=== PATIENT | female | born 1955 | race Caucasian/White ===

== ENCOUNTER 2016-09-30 19:29 | Inpatient (IN) | payer MEDICARE, MEDICAID ==
--- NOTE | 2016-09-30 19:59 | ED Physician Chart ---
Chief Complaint/HPI - Patient Information Date Seen:: 09/30/16 Time Seen:: 19:45 Chief Complaint:: increasing confusion and failure to thrive History of Present Illness:: Patient is a resident of [facility] facility with multiple medical problems. She is sent here for failure to thrive and increasing confusion. Historian:: Patient Review:: Nurse's Note Reviewed, Transfer documents Reviewed Review of Systems - Review of Systems General/Constitutional: Weakness Skin: No skin lesions Head: No headache Eyes: No loss of vision ENT: No earache, No sore throat Neck: No neck pain, No swelling Cardio Vascular: No chest pain, No palpitations Pulmonary: No SOB, No cough GI: No nausea, No vomiting G/U: No dysuria, No frequency Musculoskeletal: No bone or joint pain Endocrine: No polyuria, No polydipsia Psychiatric: Prior psych history Allergic/Immuno: No urticaria Neurological: No syncope, No focal symptoms Past Medical History - Past Medical History Past Medical History: HTN, Dyslipidemia, Seizures, Dementia Family History: Other (not available) Social History: Non Smoker, No Alcohol, Care Facility Surgical History: None Psychiatricy History: Depression, Schizophrenia, Bipolar Medication: Reviewed Family Medical History - Family Member Mother History Unknown: Yes Physical Exam - Physical Examination General/Constitutional: Well-developed, well-nourished, Alert Other Gen/Cons comments:: Patient is confused; she states the year is 1970 Head: Atraumatic Eyes: Lids, conjuctiva normal, PERRL Skin: Nl inspection, No rash ENMT: External ears, nose nl, Oropharynx nl Other ENMT comments:: Patient is edentulous Neck: No nuchal rigidity Respiratory: Nl effort/Exclusion, Clear to Auscultation Cardio Vascular: RRR GI: No tenderness/rebounding/guarding : No CVA tenderness Extremities: No tenderness or effusion, Normal digits & nails Neuro/Psych: No focal deficits Misc: No paraspinal tenderness Labs/Radiology/EKG Results - Lab Results Results: Laboratory Results - last 24 hr 09/30/16 09/30/16 09/30/16 20:02 20:02 20:02 WBC 7.9 RBC 4.14 Hgb 13.0 Hct 38.8 MCV 93.7 MCH 31.4 H MCHC Differential 33.5 RDW 12.7 Plt Count 256 MPV 8.0 Neutrophils % 47.9 Lymphocytes % 43.5 Monocytes % 5.8 Eosinophils % 1.9 Basophils % 0.9 Sodium 129 L Potassium 3.3 L Chloride 96 L Carbon Dioxide 24.9 Anion Gap 11.4 BUN 15 Creatinine 1.3 H Est GFR ( Amer) 53.6 Est GFR (Non-Af Amer) 44.3 BUN/Creatinine Ratio 11.5 Glucose 107 H Calcium 11.1 H Magnesium 2.2 - EKG Interpretations Rate & Rhythm: normal sinus rhythm with a rate of 70 Motley: normal axis Comments:: Baseline artifact noted ED Septic Shock - . Is Septic Shock (SBP<90, OR Lactate>4 mmol\L) present?: No Reassessment (Disposition) - Diagnosis Diagnosis:: Schizophrenia; bipolar; dementia; hypokalemia; hyponatremia - Patient Disposition Admitted to:: Med/Surg Spoke to:: Everett Pinto Admitting Medical Physician:: Everett Pinto Condition at Disposition:: Stable, Unchanged
[2016-09-30 20:10] LABS: % BASOPHILS 0.9 % (0.0-2.0); % EOSINOPHILS 1.9 % (0.0-5.0); % LYMPHOCYTES 43.5 % (20.0-50.0); % MONOCYTES 5.8 % (2.0-10.0); % NEUTROPHILS 47.9 % (40.0-80.0); HEMATOCRIT 38.8 % (35.0-45.0); MEAN CELL VOLUME 93.7 fl (81-100); MEAN CORPUSCULAR HEMOGLOBIN 31.4 pg (27.0-31.0); MEAN CORPUSCULAR HGB CONC 33.5 pg (28.0-36.0); NEUTROPHILE ABSOLUTE 3.7 Th/cmm (1.8-8.0); PLATELET COUNT 256 Th/cmm (150-400); RED BLOOD COUNT 4.14 Mil/cmm (3.80-5.10); RED CELL DISTRIBUTION WIDTH 12.7 % (11.5-20.0); WHITE BLOOD COUNT 7.9 Th/cmm (4.8-10.8)
[2016-09-30 20:24] LABS: ANION GAP 11.4 (7.0-16.0); BUN/CREATININE RATIO 11.5; CALCIUM SERUM 11.1 mg/dL (8.6-10.3); CARBON DIOXIDE 24.9 mEq/L (21.0-31.0); CREATININE - SERUM 1.3 mg/dL (0.6-1.2); POTASSIUM SERUM 3.3 mEq/L (3.5-5.1)
[2016-09-30] MEDS ORDERED: Potassium Chloride 20 mEq ER Tab PO ONE ×2 (20:50→20:52)
[2016-09-30] MEDS ORDERED: Hydrocodone/APAP 5mg/325mg Tab PO PRN (21:12)
[2016-09-30] MEDS ORDERED: Acetaminophen 500 MG TAB PO PRN (21:12)
[2016-09-30] MEDS: Sodium Chloride 0.9% 1,000 ML IV SCH (22:06)
[2016-09-30] MEDS: Atorvastatin Calcium 10 MG TAB PO SCH (23:16)
[2016-09-30 23:35] LABS: URINE BILIRUBIN NEGATIVE (NEGATIVE); URINE BLOOD NEGATIVE (NEGATIVE); URINE GLUCOSE (UA) NEGATIVE (NEGATIVE); URINE KETONE NEGATIVE (NEGATIVE); URINE PROTEIN TRACE mg/dL (NEGATIVE); URINE UROBILINOGEN 0.2 E.U./dL (0.2 - 1.0)
[2016-09-30 23:40] LABS: URINE COLOR YELLOW
[2016-09-30 23:41] LABS: URINE BACTERIA MANY /hpf (NONE SEEN); URINE EPITHELIAL CELLS MODERATE /lpf (FEW); URINE RBC 0-2 /hpf (0-5)
[2016-10-01 06:55] LABS: % LYMPHOCYTES 35.3 % (20.0-50.0); % MONOCYTES 6.2 % (2.0-10.0); % NEUTROPHILS 55.5 % (40.0-80.0); HEMOGLOBIN 11.8 gm/dL (11.7-15.5); MEAN CELL VOLUME 94.2 fl (81-100); MEAN CORPUSCULAR HEMOGLOBIN 32.2 pg (27.0-31.0); MEAN CORPUSCULAR HGB CONC 34.2 pg (28.0-36.0); MEAN PLATELET VOLUME 9.4 fl; NEUTROPHILE ABSOLUTE 4.7 Th/cmm (1.8-8.0); PLATELET COUNT 211 Th/cmm (150-400); RED BLOOD COUNT 3.67 Mil/cmm (3.80-5.10); RED CELL DISTRIBUTION WIDTH 12.6 % (11.5-20.0); WHITE BLOOD COUNT 8.5 Th/cmm (4.8-10.8)
[2016-10-01 06:56] LABS: HEMATOCRIT 34.5 % (35.0-45.0)
[2016-10-01] MEDS ORDERED: Levothyroxine 0.05 Mg Tab PO SCH (07:30)
[2016-10-01 07:39] LABS: ALB/GLOB RATIO 1.6 (1.0-1.8); ANION GAP 14.3 (7.0-16.0); BILIRUBIN,TOTAL 1.3 mg/dL (0.3-1.0); BUN/CREATININE RATIO 12.3; CALCIUM SERUM 9.8 mg/dL (8.6-10.3); CARBON DIOXIDE 17.3 mEq/L (21.0-31.0); CREATININE - SERUM 1.3 mg/dL (0.6-1.2); POTASSIUM SERUM 3.6 mEq/L (3.5-5.1)
[2016-10-01] MEDS: Sodium Chloride 0.9% 1,000 ML IV SCH (07:45)
[2016-10-01] MEDS: Benztropine 1 MG TAB PO SCH ×2 (08:46→16:13)
[2016-10-01] MEDS ORDERED: Multivitamin w/ Minerals Tab PO SCH (09:00)
--- NOTE | 2016-10-01 09:20 | Diagnostic Imaging Report ---
CHEST X-RAY: AP view INDICATION: Chest pain COMPARISON: None FINDINGS: Chronic changes are seen with suboptimal lung bones. There is no focal consolidation or pleural effusions The heart is normal in size. Degenerative changes of the spine and left shoulder are noted. IMPRESSION: No focal consolidation identified.
[2016-10-01] MEDS ORDERED: Sodium Chloride 0.9% 1,000 ML IV SCH (10:37)
--- NOTE | 2016-10-01 14:20 | Consultation ---
DATE OF CONSULTATION: 10/01/2016 REQUESTING PHYSICIAN: Laura Pinto M.D. REASON FOR CONSULTATION: Nausea and vomiting. HISTORY OF PRESENT ILLNESS: A 61-year-old female living in group home, presenting with nausea and vomiting. She reports choking on food there. Here, she is on a soft diet, but having no episodes of nausea, vomiting or choking. She denies abdominal pain, diarrhea, or constipation. She is a fair historian. PAST MEDICAL HISTORY: As above, also notable for schizoaffective disorder, hypertension, dyslipidemia and seizure disorder. Also, possible dementia and bipolar disorder. SOCIAL HISTORY: [facility] resident. No known tobacco, alcohol or drugs. FAMILY HISTORY: Noncontributory. REVIEW OF SYSTEMS: A comprehensive 12-point review of system was conducted and is only positive for those signs and symptoms present in the history of present illness. MEDICATIONS: Here are Tylenol, Meno, Tenormin, Lipitor, Cogentin, Tums, Colace, Aricept, Lamictal, Keppra, Synthroid, Namenda, Zofran, vitamin B6, IV fluids and Flomax. ALLERGIES: No known drug allergies. PHYSICAL EXAMINATION: VITAL SIGNS: Temperature of 97.7, blood pressure 108/61, pulse of 74, respirations 16, O2 sat is 94%. GENERAL: The patient is well-developed elderly female in no acute distress. CARDIOVASCULAR: Regular rate and rhythm. HEENT: Sclerae nonicteric. Oropharynx is clear. CARDIOVASCULAR: Regular rate and rhythm. ABDOMEN: Soft, nontender, nondistended. EXTREMITIES: No clubbing, cyanosis or edema. RECTAL: Deferred. LABORATORY DATA AND IMAGING: Complete blood count is normal. Sodium initially was 129, now up to 137, creatinine is 1.3. Blood sugar is normal. Bilirubin is 1.3. Other liver enzymes are normal. Albumin is normal at 4.2. Urinalysis positive nitrite, trace leukocyte esterase and 6-10 wbc's. IMPRESSION: 1. Nausea and vomiting, could be from gastroesophageal reflux disease or gastritis, could also be from urinary tract infection versus constipation versus less likely pancreatitis. 2. Schizoaffective disorder with bipolar disorder. 3. History of hypertension and hyperlipidemia. RECOMMENDATIONS: 1. Check abdominal ultrasound. 2. Check KUB. 3. Check amylase and lipase. 4. Oral diet as tolerated. If nausea and vomiting persist, then consider upper endoscopy later on. If the patient continues to do well, then nonendoscopic management is recommended. [facility]# [id number]
[2016-10-01] MEDS ORDERED: Sodium Chloride 0.9% 500 ML IV ONE (15:46)
--- NOTE | 2016-10-01 16:19 | Consultation ---
Consult Note - Consult Note Service Date: 10/01/16 Referring Physician: Everett Pinto Consult Note: PHYSICIAN Consultation Note: Date of Admission: 09/30/16 Purpose of Consultation: Chief Complaint: Patient AUDRA NERI was admitted to location Medical/Surgical Unit I with HYPONATREMIA,INCREASED OF CONFUSION & FAILURE TO THRIVE. History of Present Illness: .61 y female was brought from [facility] for Altered mental status. basic w/u performed and urinalysis showed mild pyuria and bacteruiuria. Past Medical History: Allergies Allergy/AdvReac Type Severity Reaction Status Date / Time No Known Allergies Allergy Verified 09/30/16 19:53 Vital Signs Temp 97.8 F 10/01/16 15:20 Pulse 74 10/01/16 15:20 Resp 17 10/01/16 15:20 BP 87/58 10/01/16 15:20 Pulse Ox 95 10/01/16 15:20 Intake & Output 09/30/16 10/01/16 10/01/16 18:59 06:59 18:59 Intake Total 1010 10 Balance 1010 10 Weight (lbs) 54.159 kg 54.159 kg Intake: Intake, IV Amount 1000 Sodium Chloride 0.9% 1, 1000 000 ml @ 125 mls/hr IV . Q8H SUKHDEEP Rx#:[id number] Oral 10 10 Other: # Voids 3 3 # Bowel Movements 0 0 Laboratory Results - last 24 hr 09/30/16 10/01/16 10/01/16 23:25 06:09 06:09 WBC 8.5 RBC 3.67 L Hgb 11.8 Hct 34.5 L D MCV 94.2 MCH 32.2 H MCHC Differential 34.2 RDW 12.6 Plt Count 211 MPV 9.4 Neutrophils % 55.5 Lymphocytes % 35.3 Monocytes % 6.2 Eosinophils % 2.0 Basophils % 1.0 Sodium 137 Potassium 3.6 Chloride 109 H Carbon Dioxide 17.3 L Anion Gap 14.3 BUN 16 Creatinine 1.3 H Est GFR ( Amer) 53.6 Est GFR (Non-Af Amer) 44.3 BUN/Creatinine Ratio 12.3 Glucose 100 Calcium 9.8 Total Bilirubin 1.3 H AST 20 ALT 11 Alkaline Phosphatase 94 Total Protein 6.8 Albumin 4.2 Globulin 2.6 Albumin/Globulin Ratio 1.6 Triglycerides 235 H Cholesterol 141 LDL Cholesterol Direct 63 L HDL Cholesterol 43 TSH Urine Source RANDOM Urine Color YELLOW Urine Clarity CLOUDY H Urine pH 6.0 Ur Specific Lyn[place] 1.020 Urine Protein TRACE Urine Glucose (UA) NEGATIVE Urine Ketones NEGATIVE Urine Blood NEGATIVE Urine Nitrate POSITIVE H Urine Bilirubin NEGATIVE Urine Urobilinogen 0.2 Ur Leukocyte Esterase TRACE H Urine RBC 0-2 Urine WBC 6-10 H Ur Epithelial Cells MODERATE Urine Bacteria MANY 10/01/16 06:09 WBC RBC Hgb Hct MCV MCH MCHC Differential RDW Plt Count MPV Neutrophils % Lymphocytes % Monocytes % Eosinophils % Basophils % Sodium Potassium Chloride Carbon Dioxide Anion Gap BUN Creatinine Est GFR ( Amer) Est GFR (Non-Af Amer) BUN/Creatinine Ratio Glucose Calcium Total Bilirubin AST ALT Alkaline Phosphatase Total Protein Albumin Globulin Albumin/Globulin Ratio Triglycerides Cholesterol LDL Cholesterol Direct HDL Cholesterol TSH 2.23 Urine Source Urine Color Urine Clarity Urine pH Ur Specific [place] Urine Protein Urine Glucose (UA) Urine Ketones Urine Blood Urine Nitrate Urine Bilirubin Urine Urobilinogen Ur Leukocyte Esterase Urine RBC Urine WBC Ur Epithelial Cells Urine Bacteria Home Medication Medication Instructions Recorded Type Acetaminophen [Tylenol Extra 1,000 mg PO Q4HR PRN 09/30/16 History Strength] Acetaminophen [Tylenol] 650 mg PO Q4HR PRN 09/30/16 History Atenolol 25 mg PO DAILY 09/30/16 History Atorvastatin Calcium [Lipitor] 20 mg PO HS 09/30/16 History Benztropine [Cogentin*] 1 mg PO BID 09/30/16 History Calcium Carbonate 260 mg PO TIDWM 09/30/16 History Docusate Sodium [Stool Softener] 250 mg PO DAILY 09/30/16 History Donepezil Hcl [Aricept] 10 mg PO HS 09/30/16 History Hydrocodone/Acetaminophen [[place] 1 tab PO Q6HR PRN 09/30/16 History 325 mg-5 mg*] Lamotrigine [Lamictal] 200 mg PO TID 09/30/16 History Levetiracetam [Keppra] 250 mg PO BID 09/30/16 History Levothyroxine [Synthroid] 0.05 mg PO QDAC 09/30/16 History Melatonin 5 mg PO HS 09/30/16 History Memantine [Namenda] 5 mg PO BID 09/30/16 History Multivitamin w/ Minerals 1 tab PO DAILY 09/30/16 History [Theragran M] Ondansetron [Zofran ODT] 4 mg PO Q8HR PRN 09/30/16 History Pyridoxine [Vitamin B6] 50 mg PO DAILY 09/30/16 History Tamsulosin [Flomax] 0.4 mg PO HS 09/30/16 History Current Medications Generic Name Dose Route Start Last Admin Trade Name Freq PRN Reason Stop Dose Admin Acetaminophen 1,000 mg 09/30/16 21:12 Tylenol Extra Strength PO 11/29/16 21:11 Q4HR PRN Pain (Moderate) Acetaminophen 650 mg 09/30/16 22:13 Tylenol PO 11/29/16 22:12 Q4H PRN Fever >101 F Acetaminophen/Hydrocodone Bitart 1 tab 09/30/16 21:12 [place] 5mg/325mg PO 11/29/16 21:11 Q6HR PRN Pain (Severe) Atenolol 25 mg 10/01/16 09:00 10/01/16 08:47 Tenormin PO 11/30/16 08:59 Not Given DAILY SUKHDEEP Atorvastatin Calcium 20 mg 09/30/16 22:15 09/30/16 23:16 Lipitor PO 11/29/16 22:14 20 mg HS SUKHDEEP Administration Benztropine Mesylate 1 mg 10/01/16 09:00 10/01/16 16:13 Cogentin PO 11/30/16 08:59 1 mg BID SUKHDEEP Administration Calcium Carbonate 250 mg 10/01/16 08:00 10/01/16 16:12 Tums PO 11/30/16 07:59 250 mg TIDWM SUKHDEEP Administration Docusate Sodium 250 mg 10/01/16 09:00 10/01/16 08:47 Colace PO 11/30/16 08:59 250 mg DAILY SUKHDEEP Administration Donepezil HCl 10 mg 10/01/16 21:00 Aricept PO 11/30/16 20:59 HS SUKHDEEP Sodium Chloride 1,000 mls @ 50 mls/hr 10/01/16 10:37 10/01/16 11:18 Nacl 0.9% IV 11/30/16 10:36 50 mls/hr .Q20H SUKHDEEP Administration Lamotrigine 200 mg 09/30/16 22:15 Lamictal PO 11/29/16 22:14 TID SUKHDEEP Levetiracetam 250 mg 10/01/16 09:00 10/01/16 08:46 Keppra PO 11/30/16 08:59 250 mg BID SUKHDEEP Administration Levothyroxine Sodium 0.05 mg 10/01/16 07:30 10/01/16 08:46 Synthroid PO 11/30/16 07:29 0.05 mg QDAC SUKHDEEP Administration Memantine 5 mg 10/01/16 09:00 10/01/16 08:46 Namenda PO 11/30/16 08:59 5 mg BID SUKHDEEP Administration Ondansetron HCl 4 mg 09/30/16 21:12 Zofran Odt PO 11/29/16 21:11 Q8HR PRN Nausea Pyridoxine HCl 50 mg 10/01/16 09:00 10/01/16 08:46 Vitamin B6 PO 11/30/16 08:59 50 mg DAILY SUKHDEEP Administration Tamsulosin HCl 0.4 mg 10/01/16 21:00 Flomax PO 11/30/16 20:59 HS SUKHDEEP Review of Systems: A 12 point ROS was reviewed with the pertinent positive and negatives noted in the HPI. Social History Smoking Status Unknown if ever smoked Family Medical History Family Medical History Start: 09/30/16 21: 37 Freq: ONCE Status: Active Document 09/30/16 21:37 MARSHA (Rec: 10/01/16 01:56 MARSHA DYLAN- [id number]) Family Medical History Mother History Unknown Yes Physical Exam: General: WN WD, no t in distress. HEENT: Head: Normocephalic, atraumatic. Oral cavity moist pink tongue. eyes no pallor. Neck: supple, no JVD. Cardio: s1 and s2 WNL. Respiratory: CTAP. Abdominal: Soft NT ND BS present. Genital/Urinary: Extremities: NCCE Neurological: AAOx3. Assessment: UTI. Hyponatremia. better. Plan: change antibiotic to levaquin po. Signed, Serafin Wilkins M.D. [id number]
--- NOTE | 2016-10-01 16:26 | Diagnostic Imaging Report ---
Renal ultrasound HISTORY: Oliguria The right kidney measures 9.8 x 4.7 x 4.9 cm. No focal lesions. No hydronephrosis. The left kidney measures 9.8 x 4.7 x 5.9 cm. No focal lesions. No hydronephrosis. Exam the urinary bladder demonstrates an approximate 5.3 cm intraluminal mass along the posterior wall. Mucosal pathology including neoplasm cannot be excluded. Follow-up needed. IMPRESSION: 1. Negative exam of the kidneys 2. Intraluminal lesion within the urinary bladder. Etiology indeterminate. Neoplasm cannot be excluded. Clinical correlation and follow-up needed.
--- NOTE | 2016-10-01 16:27 | Diagnostic Imaging Report ---
KUB abdominal film HISTORY: Pain, constipation The exam demonstrates stool-filled nondilated large bowel. Stool noted in the rectal region. Findings may be associated with constipation. Bowel gas pattern otherwise nonspecific. No free intraperitoneal air. IMPRESSION: 1. Nondilated stool-filled large bowel and rectum. Findings may be associated with constipation.
[2016-10-01] MEDS: Atorvastatin Calcium 10 MG TAB PO SCH (20:53)
[2016-10-01] MEDS ORDERED: Non-Formulary Item 1 EA (Melatonin [Melatonin] 5 MG) PO SCH (21:00)
--- NOTE | 2016-10-01 23:58 | History & Physical ---
ADMIT DATE: 10/01/2016 REASON FOR ADMISSION: This is an adult female patient admitted because of confusion, increasing failure to thrive, who was brought from the [facility]. HISTORY OF PRESENT ILLNESS: The patient showed pyuria and bacteriuria, and the patient was admitted. The patient's sodium was low at 129, her potassium was low, was admitted for possible sepsis, altered sensorium, failure to thrive, UTI, and also found that the patient has a mass in the bladder. PAST MEDICAL HISTORY: As enumerated above. PHYSICAL EXAMINATION: GENERAL: The patient is awake, somewhat confused with multiple medical problems. HEAD: Normal. ENT: Normal. LUNGS: Bilaterally clear. CARDIOVASCULAR: S1, S2 heard. ABDOMEN: Soft, lower abdominal tenderness. CENTRAL NERVOUS SYSTEM: Grossly normal. EKG was normal sinus rhythm. DIAGNOSES: Failure to thrive, confusion, altered mental status, toxic metabolic encephalopathy, urinary tract infection, rule out sepsis, lower abdominal pain, rule out mass, hyponatremia, sodium at 129, potassium low at 3.33. PLAN: We will go ahead and see the patient and we will have a GI consult, basically, for the mass, and abdominal pain. The ultrasound of the abdomen was seen, reported the patient has intraluminal lesion in the urinary bladder, etiology indeterminant. I spoke to ____ and the patient's blood pressure has been on the low side, I was giving fluids and once the patient is stable the patient is going to be transferred to a contracted facility. JOB# [id number]
[2016-10-02 06:49] LABS: % EOSINOPHILS 2.5 % (0.0-5.0)
[2016-10-02 06:52] LABS: % BASOPHILS 0.2 % (0.0-2.0); % LYMPHOCYTES 39.6 % (20.0-50.0); % MONOCYTES 6.6 % (2.0-10.0); % NEUTROPHILS 51.1 % (40.0-80.0); HEMATOCRIT 33.2 % (35.0-45.0); MEAN CELL VOLUME 94.9 fl (81-100); MEAN CORPUSCULAR HEMOGLOBIN 31.4 pg (27.0-31.0); MEAN CORPUSCULAR HGB CONC 33.1 pg (28.0-36.0); NEUTROPHILE ABSOLUTE 3.8 Th/cmm (1.8-8.0); RED CELL DISTRIBUTION WIDTH 13.2 % (11.5-20.0); WHITE BLOOD COUNT 7.4 Th/cmm (4.8-10.8)
[2016-10-02 07:02] LABS: ALB/GLOB RATIO 1.4 (1.0-1.8); ALKALINE PHOSPHATASE 76 U/L (34-104); AMYLASE SERUM 45 U/L (29-103); ANION GAP 7.9 (7.0-16.0); BILIRUBIN,TOTAL 0.7 mg/dL (0.3-1.0); BUN - UREA NITROGEN 12 mg/dL (7-25); BUN/CREATININE RATIO 10.9; CALCIUM SERUM 9.3 mg/dL (8.6-10.3); CARBON DIOXIDE 20.6 mEq/L (21.0-31.0); CHLORIDE 110 mEq/L (98-107); CREATININE - SERUM 1.1 mg/dL (0.6-1.2); GLUCOSE 92 mg/dL (70-105); LIPASE 60 U/L (11-82); POTASSIUM SERUM 3.5 mEq/L (3.5-5.1); SGOT 20 U/L (13-39); SGPT/ALT 11 U/L (7-52); SODIUM SERUM 135 mEq/L (136-145)
[2016-10-02 07:58] LABS: PLATELET COUNT ADEQUATE Th/cmm (150-400)
--- NOTE | 2016-10-02 12:36 | Progress Notes ---
DATE: 10/02/2016 SUBJECTIVE: The patient was seen in her room lying in a bed. The patient is a poor historian due to medical condition. Otherwise, the patient appears to be comfortable in no acute distress. OBJECTIVE: VITAL SIGNS: Temperature 97.8, heart rate of 69, blood pressure is 106/69, respiration of 20, 97% on room air. HEENT: Head is atraumatic and normocephalic. Eyes: Bilateral conjunctivae are clear. Bilateral pupils are equally round and reactive. NECK: Supple. No JVD. CARDIOVASCULAR: S1 and S2, without murmur. PULMONARY: Mild inspiratory wheezing noted. GASTROINTESTINAL: Soft and nontender without guarding. Positive bowel sounds. MUSCULOSKELETAL: No clubbing, no cyanosis noted. ASSESSMENT: 1. Urinary tract infection. 2. Rule out sepsis. 3. Abdominal pain. 4. Altered mental status. 5. Metabolic encephalopathy. 6. Failure to thrive. PLAN: We will continue IV antibiotics as indicated. There is a possibility that the patient will be transferred to another hospital due to the insurance, otherwise treatment plans were discussed with patient's nurse and treatment plans were discussed with Dr. Pinto. JOB# [id number]
--- NOTE | 2016-10-02 22:27 | Admit Criteria Form ---
Admit Criteria Forms - Admit Criteria Diagnosis: MENTAL STATUS CHANGE Clinical Indications for Inpatient Care (Place 'X' for any and all applicable criteria): Ongoing inpatient care may be needed for 1 or more of the following(1)(2)(3)(5)( 6): [X]I. Suspected serious etiology (eg, medical disorder, HVAC SPECIALIST event) of altered mental status [ ]II. Danger to self or others not manageable at lower level of care [ ]III. Grave disability (eg, inability to perform self care necessary at lower level of care) [ ]IV. Agitation or inappropriate behavior interfering with care for primary condition (eg, attempting to discontinue lines or drains prematurely, unable to cooperate with respiratory care) [ ]V. Delirium [A] [D][E] as described by 1 or more of the following(26): [ ]a) Delirium due to alcohol or sedative [F] withdrawal [ ]b) Delirium of uncertain etiology that has not responded to appropriate empiric treatment [ ]c) Delirium that prevents performance of a life-sustaining function (eg, feeding or hydrating oneself) [X]. General contraindications and/or Inappropriate clinical situations for Observational Care in patients with Mental Status Change, when ANY ONE of the following is required: [ ]a) Prediction of prolongation of LOS based on ANY ONE of the following may be considered as a contraindication for observational care 2, 3, 4, 5, 6, 7, 8, 9, 10, 11 [ ]i) Age > 65 yrs. [ ]ii) Patient arriving by ambulance [ ]iii) Patient with high acuity [ ]iv) Patient requiring vital sign monitoring [ ]v) Patient on IV medication [ ]b) Systolic blood pressures greater than or equal to 180mmHg 3, 12 [ ]c) Patient with altered mental status including delirium and other alteration of consciousness, (3) [ ]d) Patient whose discharge disposition will be to a custodial home or rehabilitation home should not be managed in Emergency Department Observation Unit. CMS rule requires 3 days hospital stay before such placement.3,13 [X]e) Patient with failure to thrive due to broad array of etiologies 3,16,17 [ ]f) Inability to ambulate 3,14 Extended stay beyond goal length of stay for the primary condition may be needed until ALL of the following are present(3)(5): [ ]a) Underlying medical etiology of mental status change is absent, or has been established and adequately treated [ ]b) Danger to self or others is absent or manageable at lower level of care. [ ]c) Behavior crisis management, including physical or chemical restraints, is not required or available at lower level of car [ ]d) Substance or alcohol withdrawal is absent or manageable at lower level of care. [ ]e) Behavioral symptoms (eg, agitation, somnolence, inappropriate behavior) are absent, or are manageable at lower level of care. The original [facility] content created by [facility] has been revised. The portions of the content which have been revised are identified through the use of italic text or in bold, and [facility] has neither reviewed nor approved the modified material. All other unmodified content is copyright [facility]. Please see references footnoted in the original [facility] edition 2016 Admit Criteria Met?: Yes
--- NOTE | 2016-10-05 01:50 | Discharge Summary ---
DATE OF DISCHARGE: 10/02/2016 HOSPITAL COURSE: This is a well-known patient for me. This patient is from [place]. Also has been complaining of some lower abdominal pain, ____ and she was sent to [facility]. She was admitted. The patient had urinary tract infection, failure to thrive, toxic metabolic encephalopathy, lower abdominal pain, hyponatremia, ____, and the patient was treated for that. The patient improved, but ultrasound showed she had a mass in the lower abdomen and I spoke with ____ from the contracted insurance and the patient is moved to [facility] in a stable condition. This patient at the time of discharge is stable. JOB# [id number]
== END 2016-10-02 07:00 | disposition short-term general hospital (02) | DRG 640 ==
LOC: ER 19:29 → MSI 21:15
PROVIDERS: ADMIT Internal Medicine; ATTEND Internal Medicine
DX: E87.1 Hypo-osmolality and hyponatremia (principal); G92 Toxic encephalopathy; N39.0 Urinary tract infection, site not specified; F25.0 Schizoaffective disorder, bipolar type; E87.6 Hypokalemia; F03.90 Unspecified dementia, unspecified severity, without behavioral disturbance, psychotic disturbance, mood disturbance, and anxiety; R62.7 Adult failure to thrive; I10 Essential (primary) hypertension; E78.5 Hyperlipidemia, unspecified; G40.909 Epilepsy, unspecified, not intractable, without status epilepticus; R82.71 Bacteriuria; N32.9 Bladder disorder, unspecified; Z79.899 Other long term (current) drug therapy
CPT/HCPCS: 36415-UA; 71010-TC; 74000-TC; 76770-TC; 80048-TC; 80053-TC; 80061-TC; 81001-TC; 82150-TC; 82378-90; 83690-TC; 83735-TC; 84443-TC; 85025-TC; 93005; J7030; Z7610

== ENCOUNTER 2018-03-16 17:29 | Inpatient (IN) | payer MEDICARE, MEDICAID ==
[2018-03-16] MEDS ORDERED: Haloperidol Lactate 5 mg/mL 1mL Vial IM STA (17:32)
[2018-03-16] MEDS ORDERED: Haloperidol Lactate 5 mg/mL 1mL Vial ONE (17:37)
--- NOTE | 2018-03-16 17:39 | ED Physician Chart ---
ED Chief Complaint/HPI - Patient Information Date Seen:: 03/16/18 Time Seen:: 17:25 Chief Complaint:: combative behavior History of Present Illness:: Patient has been exhibiting combative behavior including yelling at her half-way facility. Allergies:: Allergies Allergy/AdvReac Type Severity Reaction Status Date / Time No Known Allergies Allergy Verified 09/30/16 19:53 Historian:: EMS Review:: Transfer documents Reviewed ED Review of Systems - Review of Systems General/Constitutional: No fever, No chills, No weight loss, No weakness, No diaphoresis, No edema, No loss of appetite Skin: No skin lesions, No rash, No bruising Head: No headache, No light-headedness Eyes: No loss of vision, No pain, No diplopia ENT: No earache, No nasal drainage, No sore throat, No tinnitus Neck: No neck pain, No swelling, No thyromegaly, No stiffness, No mass noted Cardio Vascular: No chest pain, No palpitations, No PND, No orthopnea, No edema Pulmonary: No SOB, No cough, No sputum, No wheezing GI: No nausea, No vomiting, No diarrhea, No pain, No melena, No hematochezia, No constipation, No hematemesis G/U: No dysuria, No frequency, No hematuria Musculoskeletal: No bone or joint pain, No back pain, No muscle pain Endocrine: No polyuria, No polydipsia Psychiatric: Prior psych history, No suicidal ideation Hematopoietic: No bruising, No lymphadenopathy Allergic/Immuno: No urticaria, No angioedema Neurological: No syncope, No focal symptoms, No weakness, No paresthesia, No headache, No seizure, No dizziness, No confusion, No vertigo ED Past Medical History - Past Medical History Past Medical History: HTN, Thyroid disorder, Dementia, Other (constipation; hypothyroidism) Family History: Other (unavailable) Social History: Care Facility Surgical History: other (unavailable) Psychiatricy History: Schizophrenia, Dementia Medication: Reviewed Family Medical History - Family Member Mother History Unknown: Yes ED Physical Exam - Physical Examination General/Constitutional: Non-toxic appearing Other Gen/Cons comments:: Patient physically threatening when I tried to examine her both before and after she was sedated Eyes: Lids, conjuctiva normal, PERRL, EOMI Skin: Nl inspection, No rash, No skin lesions, No ecchymosis, Well hydrated, No lymphadenopathy ENMT: External ears, nose nl, Nasal exam nl, Lips, teeth, gums nl Other ENMT comments:: Edentulous Neck: No nuchal rigidity, No stridor Respiratory: Nl effort/Exclusion, Clear to Auscultation, No Wheeze/Rhonchi/Rales Other Cardio Vascular comments:: Could not adequately auscultate the heart GI: No tenderness/rebounding/guarding, No organomegaly, No hernia, Normal BS's, Nondistended, No mass/bruits, No McBurney tenderness Extremities: Normal digits & nails Neuro/Psych: No focal deficits Misc: Normal back ED Assessment - Assessment General Assessment: Patient did not allow blood to be drawn nor an EKG to be done in the emergency department. She was physically threatening to staff. Patient looked well so it is unlikely that she would have a major laboratory or EKG abnormality. Patient given medical clearance based on history taken from the patient's transfer document and a very limited physical examination. ED Septic Shock - . Is Septic Shock (SBP<90, OR Lactate>4 mmol\L) present?: No ED Reassessment (Disposition) - Reassessment Reassessment Condition:: Unchanged - Diagnosis Diagnosis:: Dementia with agitation; physically threatening behavior - Patient Disposition Admitted to:: [facility] Admitting Medical Physician:: Everett Pinto Admitting Psych Physician:: Verna Cristina
[2018-03-16 20:07] LABS: % BASOPHILS 0.6 % (0.0-2.0); % EOSINOPHILS 2.4 % (0.0-5.0); % LYMPHOCYTES 31.5 % (20.0-50.0); % MONOCYTES 6.6 % (2.0-10.0); % NEUTROPHILS 58.9 % (40.0-80.0); EOSINOPHILE ABSOLUTE 0.2 Th/cmm (0.1-0.4); HEMATOCRIT 37.7 % (41.0-60); HEMOGLOBIN 12.6 gm/dL (12-16); LYMPHOCYTE ABSOLUTE 2.1 Th/cmm (1.5-3.0); MEAN CELL VOLUME 91.6 fl (81-100); MEAN CORPUSCULAR HEMOGLOBIN 30.7 pg (27.0-31.0); MEAN CORPUSCULAR HGB CONC 33.5 pg (28.0-36.0); MEAN PLATELET VOLUME 7.4 fl; MONOCYTE ABSOLUTE 0.4 Th/cmm (0.3-1.0); PLATELET COUNT 261 Th/cmm (150-400); RED BLOOD COUNT 4.11 Mil/cmm (3.80-5.10); RED CELL DISTRIBUTION WIDTH 12.7 % (11.5-20.0); WHITE BLOOD COUNT 6.7 Th/cmm (4.8-10.8)
[2018-03-16 20:21] LABS: ALB/GLOB RATIO 1.4 (1.0-1.8); ALBUMIN 4.4 gm/dL (3.7-5.3); ANION GAP 12.5 (7.0-16.0); BILIRUBIN,TOTAL 0.4 mg/dL (0.3-1.0); CALCIUM SERUM 10.1 mg/dL (8.6-10.3); CARBON DIOXIDE 27.2 mEq/L (21.0-31.0); CREATININE - SERUM 1.2 mg/dL (0.6-1.2); GFR AFRICAN-AMERICAN 58.4 ml/min (>90); GFR NON AFRICAN-AMERICAN 48.2 ml/min; POTASSIUM SERUM 3.7 mEq/L (3.5-5.1); TOTAL PROTEIN,SERUM 7.6 gm/dL (6.0-8.3)
[2018-03-16 20:54] VITALS: BP 118/73
[2018-03-16] MEDS ORDERED: Hydrocodone/APAP 5mg/325mg Tab PO PRN (21:50)
[2018-03-17] MEDS: Levothyroxine 0.05 Mg Tab PO SCH (07:30)
[2018-03-17] MEDS: Multivitamin w/ Minerals Tab PO SCH (09:10)
[2018-03-17] MEDS: Benztropine 1 MG TAB PO SCH ×2 (09:10→17:49)
[2018-03-17] MEDS: Atorvastatin Calcium 10 MG TAB PO SCH (22:00)
[2018-03-18] MEDS: Levothyroxine 0.05 Mg Tab PO SCH (06:51)
--- NOTE | 2018-03-18 09:15 | History & Physical ---
ADMIT DATE: 03/18/2018 CHIEF COMPLAINT: Increasing agitation. HISTORY OF PRESENT ILLNESS: This is a 63-year-old female who was admitted from penitentiary facility to the [facility] due to increase in agitation and combative behavior. Subsequently, the patient was placed on 5150 hold due to danger to others. Then, the patient was medically cleared and thus admitted to the psychiatric unit. REVIEW OF SYSTEMS: GENERAL: This is a 63-year-old female. No fever. No weakness. HEENT: No headache. No dizziness. EYES: No eye pain, no blurring of vision. NECK: No neck pain. No nuchal rigidity. CHEST: No chest pain. No palpitation. PULMONARY: No coughing or shortness of breath. GASTROINTESTINAL: No abdominal pain, no constipation, no diarrhea. MUSCULOSKELETAL: No joint pain. No muscle pain. SOCIAL HISTORY: The patient lives in a penitentiary facility prior to hospitalization. FAMILY HISTORY: Unremarkable. PAST SURGICAL HISTORY: Unremarkable. PSYCHIATRIC HISTORY: Includes schizoaffective disorder. PAST MEDICAL HISTORY: Hyperlipidemia, osteoarthritis. PHYSICAL EXAMINATION: VITAL SIGNS: Temperature 97.1, heart rate 76, blood pressure 112/64, respiration 19, 94% on room air. GENERAL: This is a 63-year-old female that appears as stated in no acute distress. HEENT: Head is atraumatic, normocephalic. Eyes: Bilateral conjunctivae are clear. Bilateral pupils are equally round and reactive. NECK: Supple. No JVD. CARDIOVASCULAR: S1 and S2, without murmur. PULMONARY: Clear to auscultation. GASTROINTESTINAL: Soft and nontender without guarding. Positive bowel sounds. MUSCULOSKELETAL: No clubbing. No cyanosis noted. ASSESSMENT: 1. Dementia. 2. 5150 hold, danger to others. 3. Seizure disorder. 4. Hypothyroidism. 5. Hyperlipidemia. 6. Hypertension. PLAN: We will admit the patient to Psychiatric Unit. We will follow up with a psychiatrist to monitor the patient's condition and behavior. We will do medication reconciliation accordingly. Treatment plans were discussed with the patient's nurse. Treatment plans were discussed with Dr. Pinto. JOB# [id number]
[2018-03-18] MEDS: Multivitamin w/ Minerals Tab PO SCH (09:28)
[2018-03-18] MEDS: Benztropine 1 MG TAB PO SCH ×2 (09:29→17:25)
[2018-03-18] MEDS: Atorvastatin Calcium 10 MG TAB PO SCH (20:54)
--- NOTE | 2018-03-18 23:14 | Progress Notes ---
DATE: 03/18/2018 SUBJECTIVE: The patient was seen and evaluated. The patient's chart reviewed. This is Dr. Peterson covering for Dr. Cristina. HISTORY OF PRESENT ILLNESS: This is a 63-year-old female admitted here from a custodial for increased agitation and combative behavior. She was placed on a hold for aggressive behavior. CURRENT MEDICATION REGIMEN: Includes atenolol, Lipitor, Cogentin, Aricept 10 mg, Lamictal 200 mg p.o. t.i.d., Keppra 250 mg p.o. b.i.d., Synthroid, Ativan as needed, Namenda 5 mg p.o. b.i.d. Today on [id number] evaluation, nursing staff reported that the patient mostly disengaged in her room and actually today on [id number] evaluation, the patient smiles upon approach and reports everything is fine, poor historian overall. MENTAL STATUS EXAMINATION: Withdrawn, disengaged, hopefulness. ASSESSMENT AND PLAN: The patient is a 63-year-old female with history of behavior disturbance and history of seizure disorder who came in combative and agitated, who is unable to engage or process her emotions appropriately. She will continue to be high risk, we will continue with the current medication regimen and continue with primary psychiatrist's treatment plan and goals. JOB# [id number]
--- NOTE | 2018-03-19 03:53 | Psychiatric Evaluation ---
DATE OF SERVICE: INITIAL EVALUATION AND MENTAL STATUS EXAM AGE: 63. SEX: Female. PHYSICIAN: Dr. Cristina. CHIEF COMPLAINT: Increased irritability and increased agitation. HISTORY OF PRESENT ILLNESS: The patient is a 63-year-old male who was admitted to the hospital because of increased irritability and increased agitation. The patient is living in a chcf in the [facility] and she has been diagnosed with dementia before, but lately she has been aggressive and irritable and has difficulty following any of staff directions. The patient also is still having labile mood. The patient has been taking Lamictal and because of her anger outburst and yelling and screaming the patient was not able to follow directions and she was sent to the Geropsych Unit. The patient also has unsteady gait and she can be high fall risk. In spite of that in the chcf the patient was walking backwards and fall risk and she was yelling and screaming and she also threatened the Emergency Room doctor when she came into the hospital and she tried to hit staff. Also, she was having difficulty with redirections. The patient was placed on hold for grave disability and dangers to others. PAST PSYCHIATRIC HISTORY: The patient has history of what seems to be schizoaffective disorder and also psychosis. The patient also diagnosed with dementia. PAST MEDICAL HISTORY: The patient has a history of hypertension as well as seizure disorder. The patient also has hypothyroidism. SOCIAL HISTORY: The patient lives in [facility]. No known alcohol or drug use. ALLERGIES: No known allergies. MENTAL STATUS EXAMINATION: The patient appears older than her stated age. Disheveled. Angry and in irritable mood. Thought processes are circumstantial, but no flight of ideas. The patient denies any auditory or visual hallucination, but actively responding to stimuli. The patient is alert, but seems to be disoriented to time, place, person, and situation. Impaired immediate, recent and remote memories. Poor insight and poor judgment. ASSESSMENT: PRIMARY DIAGNOSES: Schizoaffective disorder, mixed type, severe, with psychotic features. SECONDARY DIAGNOSES: Dementia, moderate to severe, with behavioral disturbances and psychosis. TREATMENT PLAN: We will monitor the patient's behavior and condition closely. We will start individual as well as milieu psychotherapy. We will monitor psychotropic medications and will continue Lamictal. ESTIMATED LENGTH OF STAY: 5-7 days. THE PATIENT'S STRENGTH AND WEAKNESSES: The patient's strength is not clear at this time. Weaknesses is ineffective coping and poor judgment and poor impulse control. AFTER DISCHARGE PLAN: The patient will return to [facility] with plans for outpatient treatment and followup. CRITERIA FOR DISCHARGE: Better impulse control and less irritable and less agitated. [facility]# [id number]
[2018-03-19] MEDS: Levothyroxine 0.05 Mg Tab PO SCH (06:53)
[2018-03-19] MEDS: Multivitamin w/ Minerals Tab PO SCH (08:38)
[2018-03-19] MEDS: Benztropine 1 MG TAB PO SCH ×2 (08:38→17:06)
--- NOTE | 2018-03-19 12:05 | Internal Medicine Prog Note ---
Internal Medicine Subjective - Subjective Patient seen and examined:: chart reviewed Patient is:: awake, talking, agitated, confused, other (patient admitted for increase agitation and danger to otheres 5150 hold) Per staff patient has:: no adverse event Internal Medicine Objective - Results Result Diagrams: 03/16/18 20:00 03/16/18 20:00 Recent Labs: Laboratory Last Values WBC 6.7 Th/cmm (4.8-10.8) 03/16/18 20:00 RBC 4.11 Mil/cmm (3.80-5.10) 03/16/18 20:00 Hgb 12.6 gm/dL (12-16) 03/16/18 20:00 Hct 37.7 % (41.0-60) L 03/16/18 20:00 MCV 91.6 fl (81-100) 03/16/18 20:00 MCH 30.7 pg (27.0-31.0) 03/16/18 20:00 MCHC Differential 33.5 pg (28.0-36.0) 03/16/18 20:00 RDW 12.7 % (11.5-20.0) 03/16/18 20:00 Plt Count 261 Th/cmm (150-400) 03/16/18 20:00 MPV 7.4 fl 03/16/18 20:00 Neutrophils % 58.9 % (40.0-80.0) 03/16/18 20:00 Lymphocytes % 31.5 % (20.0-50.0) 03/16/18 20:00 Monocytes % 6.6 % (2.0-10.0) 03/16/18 20:00 Eosinophils % 2.4 % (0.0-5.0) 03/16/18 20:00 Basophils % 0.6 % (0.0-2.0) 03/16/18 20:00 Sodium 135 mEq/L (136-145) L 03/16/18 20:00 Potassium 3.7 mEq/L (3.5-5.1) 03/16/18 20:00 Chloride 99 mEq/L (98-107) 03/16/18 20:00 Carbon Dioxide 27.2 mEq/L (21.0-31.0) 03/16/18 20:00 Anion Gap 12.5 (7.0-16.0) 03/16/18 20:00 BUN 20 mg/dL (7-25) 03/16/18 20:00 Creatinine 1.2 mg/dL (0.6-1.2) 03/16/18 20:00 Est GFR ( Amer) 58.4 ml/min (>90) 03/16/18 20:00 Est GFR (Non-Af Amer) 48.2 ml/min 03/16/18 20:00 BUN/Creatinine Ratio 16.7 03/16/18 20:00 Glucose 110 mg/dL (70-105) H 03/16/18 20:00 Calcium 10.1 mg/dL (8.6-10.3) 03/16/18 20:00 Total Bilirubin 0.4 mg/dL (0.3-1.0) 03/16/18 20:00 AST 21 U/L (13-39) 03/16/18 20:00 ALT 16 U/L (7-52) 03/16/18 20:00 Alkaline Phosphatase 152 U/L (34-104) H 03/16/18 20:00 Total Protein 7.6 gm/dL (6.0-8.3) 03/16/18 20:00 Albumin 4.4 gm/dL (3.7-5.3) 03/16/18 20:00 Globulin 3.2 gm/dL 03/16/18 20:00 Albumin/Globulin Ratio 1.4 (1.0-1.8) 03/16/18 20:00 Triglycerides 189 mg/dL (<150) H 03/16/18 20:00 Cholesterol 204 mg/dL (<200) H 03/16/18 20:00 LDL Cholesterol Direct 86 mg/dL (75-193) 03/16/18 20:00 HDL Cholesterol 78 mg/dL (23-92) 03/16/18 20:00 TSH 5.11 uIU/ml (0.34-5.60) 03/16/18 20:00 - Physical Exam Vitals and I&O: Vital Signs Temp 97.9 F 03/19/18 06:36 Pulse 92 03/19/18 08:39 Resp 18 03/19/18 06:36 BP 96/60 03/19/18 08:39 Pulse Ox 97 03/19/18 06:36 Intake & Output 03/18/18 03/19/18 03/19/18 18:59 06:59 18:59 Intake Total 950 360 Balance 950 360 Intake: Oral 950 360 Other: # Voids 4 1 # Bowel Movements 1 Active Medications: Current Medications Acetaminophen (Tylenol) 650 mg PO Q4H PRN PRN Reason: Mild Pain / Temp above 100 Stop: 05/15/18 20:56 Acetaminophen/Hydrocodone Bitart (Eugene 5mg/325mg) 1 tab PO Q6H PRN PRN Reason: Pain (Moderate) Stop: 05/15/18 21:49 Atenolol (Tenormin) 25 mg PO DAILY [facility] Stop: 05/16/18 08:59 Last Admin: 03/19/18 08:39 Dose: Not Given Atorvastatin Calcium (Lipitor) 20 mg PO HS [facility]; Protocol Stop: 05/16/18 20:59 Last Admin: 03/18/18 20:54 Dose: 20 mg Benztropine Mesylate (Cogentin) 1 mg PO BID [facility] Stop: 05/16/18 08:59 Last Admin: 03/19/18 08:38 Dose: 1 mg Calcium Carbonate (Tums) 500 mg PO TIDWM [facility] Stop: 05/16/18 07:59 Last Admin: 03/19/18 08:37 Dose: 500 mg Docusate Sodium (Colace) 250 mg PO DAILY [facility] Stop: 05/16/18 08:59 Last Admin: 03/19/18 08:37 Dose: 250 mg Donepezil HCl (Aricept) 10 mg PO [facility] Stop: 05/16/18 20:59 Last Admin: 03/18/18 20:54 Dose: 10 mg Lamotrigine (Lamictal) 200 mg PO TID [facility]; Protocol Stop: 05/16/18 08:59 Last Admin: 03/19/18 08:38 Dose: 200 mg Levetiracetam (Keppra) 250 mg PO BID [facility] Stop: 05/16/18 08:59 Last Admin: 03/19/18 08:38 Dose: 250 mg Levothyroxine Sodium (Synthroid) 0.05 mg PO QDAC [facility] Stop: 05/16/18 07:29 Last Admin: 03/19/18 06:53 Dose: 0.05 mg Lorazepam (Ativan) 0.5 mg PO Q4H PRN; Protocol PRN Reason: Anxiety Stop: 05/15/18 20:56 Last Admin: 03/17/18 09:10 Dose: 0.5 mg Memantine (Namenda) 5 mg PO BID [facility] Stop: 05/16/18 08:59 Last Admin: 03/19/18 08:41 Dose: 5 mg Ondansetron HCl (Zofran Odt) 4 mg PO Q8H PRN PRN Reason: Nausea Stop: 05/15/18 21:27 Pyridoxine HCl (Vitamin B6) 50 mg PO DAILY [facility] Stop: 05/16/18 08:59 Last Admin: 03/19/18 08:41 Dose: 50 mg Tamsulosin HCl (Flomax) 0.4 mg PO HS [facility] Stop: 05/16/18 20:59 Last Admin: 03/18/18 20:53 Dose: 0.4 mg Zolpidem Tartrate (Ambien) 5 mg PO HS PRN PRN Reason: Insomnia Last Admin: 03/17/18 22:01 Dose: 5 mg General: demented HEENT: NC/AT Neck: Supple Lungs: CTAB Cardiovascular: RRR, Normal S1, Normal S2 Abdomen: soft, non-tender Extremities: clear Neurological: no change Internal Medicine Assmt/Plan - Assessment Assessment: dementia 5150 hold danger to others seizure disorder hypothyroidism htn hyperlipidemia - Plan Plan: as per psych will monitor Nutritional Asmnt/Malnutr-PDOC - Dietary Evaluation Malnutrition Findings (Please click <Entered> for more info): Nutritional Asmnt/Malnutrition Start: 03/17/18 14: 04 Text: Status: Active Freq: Protocol: Document 03/17/18 14:04 [email or web address] (Rec: 03/17/18 14:13 [email or web address] Nutritional Asmnt/Malnutrition Patient General Information Nutritional Screening Consult Diagnosis psychosis nos Pertinent Medical Hx/Surgical Hx HTN, thyroid disorder, dementia, constipation, hypothyroidism, schizophrenia Subjective Information Consult recieved for SBS diet. Pt was seen walking to the dining room for lunch. Pt is confused, stated she likes coffee. Pt's lunch tray was seen with small portion as ordered. Not able to provide theraputic diet education per pt mental status. Current Diet Order/ Nutrition Support low sodium 2gm, SBS diet with small portion Pertinent Medications tums, colace, synthroid, zofran, vit B6, ambien Pertinent Labs 03/16 Glucose 110, Na 135, Triglycerides 189, cholesterol 204 Nutritional Hx/Data Height 1.6 m Height (Calculated Centimeters) 160.0 Current Weight (lbs) 58.967 kg Weight (Calculated Kilograms) 59.0 Weight (Calculated Grams) 21140.0 [place] Body Weight 115 Body Mass Index (BMI) 23.0 Weight Status Approriate GI Symptoms GI Symptoms None Last BM not indicated Difficult in: None Food Allergies No Skin Integrity/Comment: layne bray 14 Estimated Nutritional Goals BEE in Kcals: Using Current wt Calories/Kcals/Kg 25-30 Kcals Calculated 3168-0477 Protein: Using Current wt Protein g/k.8-1 Protein Calculated 47-59 Fluid: ml 4788-9913 (1ml/kcal) Nutritional Problem No current Nutrition Prob Problem N/A Malnutrition Alert Is there a minimum of two criteria No selected? Query Text:Check all the applicable criteria. A minimum of two criteria are recommended for diagnosis of either severe or non-severe malnutrition. Malnutrition Related to Morbid Obesity Malnutrition related to morbid obesity No Intervention/Recommendation Comments 1. Continue with low sodium 2gm, SBS small portion diet as ordered. Limit food high in oxalate. 2. Monitor PO intake, wt, labs and skin integrity 3. F/U as moderate risk in 3-5 days, PO check 03/20 Expected Outcomes/Goals Expected Outcomes/Goals 1. PO intake to meet at least 75% of nutritional needs. 2. Wt stability, skin to remain intact, labs to approach WNL. Reviewed by Kaykay Thomson RD
[2018-03-19] MEDS: Atorvastatin Calcium 10 MG TAB PO SCH (20:37)
--- NOTE | 2018-03-19 20:40 | Progress Notes ---
DATE: 03/19/2018 The patient was seen and evaluated. The patient's chart reviewed. Covering for Dr. Cristina. Overnight, nursing staff reports the patient continues to present easily agitated, irritable. Today on [id number] evaluation, the patient is noted to pace out of her room and caught back in, easily irritable with inappropriate smiles. MENTAL STATUS EXAMINATION: Inappropriate smiles, irritable. ASSESSMENT AND PLAN: The patient is a 63-year-old female who continues to be disorganized and needs redirection to maintain a linear conversation. We will continue with primary psychiatrist's treatment plan and goals, which include Aricept at 10 mg, Lamictal, Keppra for seizures. JOB# [id number]
[2018-03-20] MEDS: Levothyroxine 0.05 Mg Tab PO SCH (06:34)
[2018-03-20] MEDS: Benztropine 1 MG TAB PO SCH ×2 (08:38→16:14)
[2018-03-20] MEDS: Multivitamin w/ Minerals Tab PO SCH (08:38)
--- NOTE | 2018-03-20 12:51 | Internal Medicine Prog Note ---
Internal Medicine Subjective - Subjective Patient seen and examined:: chart reviewed Patient is:: awake, confused, other (patient admitted for increase agitation and danger to otheres 5150 hold) Per staff patient has:: no adverse event Internal Medicine Objective - Results Result Diagrams: 03/16/18 20:00 03/16/18 20:00 Recent Labs: Laboratory Last Values WBC 6.7 Th/cmm (4.8-10.8) 03/16/18 20:00 RBC 4.11 Mil/cmm (3.80-5.10) 03/16/18 20:00 Hgb 12.6 gm/dL (12-16) 03/16/18 20:00 Hct 37.7 % (41.0-60) L 03/16/18 20:00 MCV 91.6 fl (81-100) 03/16/18 20:00 MCH 30.7 pg (27.0-31.0) 03/16/18 20:00 MCHC Differential 33.5 pg (28.0-36.0) 03/16/18 20:00 RDW 12.7 % (11.5-20.0) 03/16/18 20:00 Plt Count 261 Th/cmm (150-400) 03/16/18 20:00 MPV 7.4 fl 03/16/18 20:00 Neutrophils % 58.9 % (40.0-80.0) 03/16/18 20:00 Lymphocytes % 31.5 % (20.0-50.0) 03/16/18 20:00 Monocytes % 6.6 % (2.0-10.0) 03/16/18 20:00 Eosinophils % 2.4 % (0.0-5.0) 03/16/18 20:00 Basophils % 0.6 % (0.0-2.0) 03/16/18 20:00 Sodium 135 mEq/L (136-145) L 03/16/18 20:00 Potassium 3.7 mEq/L (3.5-5.1) 03/16/18 20:00 Chloride 99 mEq/L (98-107) 03/16/18 20:00 Carbon Dioxide 27.2 mEq/L (21.0-31.0) 03/16/18 20:00 Anion Gap 12.5 (7.0-16.0) 01/17/19 20:00 BUN 20 mg/dL (7-25) 03/16/18 20:00 Creatinine 1.2 mg/dL (0.6-1.2) 03/16/18 20:00 Est GFR ( Amer) 58.4 ml/min (>90) 03/16/18 20:00 Est GFR (Non-Af Amer) 48.2 ml/min 03/16/18 20:00 BUN/Creatinine Ratio 16.7 03/16/18 20:00 Glucose 110 mg/dL (70-105) H 03/16/18 20:00 Calcium 10.1 mg/dL (8.6-10.3) 03/16/18 20:00 Total Bilirubin 0.4 mg/dL (0.3-1.0) 03/16/18 20:00 AST 21 U/L (13-39) 03/16/18 20:00 ALT 16 U/L (7-52) 03/16/18 20:00 Alkaline Phosphatase 152 U/L (34-104) H 03/16/18 20:00 Total Protein 7.6 gm/dL (6.0-8.3) 03/16/18 20:00 Albumin 4.4 gm/dL (3.7-5.3) 03/16/18 20:00 Globulin 3.2 gm/dL 03/16/18 20:00 Albumin/Globulin Ratio 1.4 (1.0-1.8) 03/16/18 20:00 Triglycerides 189 mg/dL (<150) H 03/16/18 20:00 Cholesterol 204 mg/dL (<200) H 03/16/18 20:00 LDL Cholesterol Direct 86 mg/dL (75-193) 03/16/18 20:00 HDL Cholesterol 78 mg/dL (23-92) 03/16/18 20:00 TSH 5.11 uIU/ml (0.34-5.60) 03/16/18 20:00 - Physical Exam Vitals and I&O: Vital Signs Temp 98.1 F 03/20/18 06:46 Pulse 73 03/20/18 08:38 Resp 18 03/20/18 06:46 BP 111/67 03/20/18 08:38 Pulse Ox 97 03/20/18 06:46 Intake & Output 03/19/18 03/20/18 03/20/18 18:59 06:59 18:59 Intake Total 950 120 Balance 950 120 Intake: Oral 950 120 Other: # Voids 3 3 # Bowel Movements 1 0 Active Medications: Current Medications Acetaminophen (Tylenol) 650 mg PO Q4H PRN PRN Reason: Mild Pain / Temp above 100 Stop: 05/15/18 20:56 Acetaminophen/Hydrocodone Bitart ([place] 5mg/325mg) 1 tab PO Q6H PRN PRN Reason: Pain (Moderate) Stop: 05/15/18 21:49 Atenolol (Tenormin) 25 mg PO DAILY [facility] Stop: 05/16/18 08:59 Last Admin: 03/20/18 08:38 Dose: 25 mg Atorvastatin Calcium (Lipitor) 20 mg PO HS [facility]; Protocol Stop: 05/16/18 20:59 Last Admin: 03/19/18 20:37 Dose: 20 mg Benztropine Mesylate (Cogentin) 1 mg PO BID [facility] Stop: 05/16/18 08:59 Last Admin: 03/20/18 08:38 Dose: 1 mg Calcium Carbonate (Tums) 500 mg PO TIDWM [facility] Stop: 05/16/18 07:59 Last Admin: 03/20/18 08:37 Dose: 500 mg Docusate Sodium (Colace) 250 mg PO DAILY [facility] Stop: 05/16/18 08:59 Last Admin: 03/20/18 08:39 Dose: 250 mg Donepezil HCl (Aricept) 10 mg PO HS [facility] Stop: 05/16/18 20:59 Last Admin: 03/19/18 20:41 Dose: 10 mg Lamotrigine (Lamictal) 200 mg PO TID [facility]; Protocol Stop: 05/16/18 08:59 Last Admin: 03/20/18 08:38 Dose: 200 mg Levetiracetam (Keppra) 250 mg PO BID [facility] Stop: 05/16/18 08:59 Last Admin: 03/20/18 08:37 Dose: 250 mg Levothyroxine Sodium (Synthroid) 0.05 mg PO QDAC [facility] Stop: 05/16/18 07:29 Last Admin: 03/20/18 06:34 Dose: 0.05 mg Lorazepam (Ativan) 0.5 mg PO Q4H PRN; Protocol PRN Reason: Anxiety Stop: 05/15/18 20:56 Last Admin: 03/17/18 09:10 Dose: 0.5 mg Memantine (Namenda) 5 mg PO BID [facility] Stop: 05/16/18 08:59 Last Admin: 03/20/18 08:38 Dose: 5 mg Ondansetron HCl (Zofran Odt) 4 mg PO Q8H PRN PRN Reason: Nausea Stop: 05/15/18 21:27 Pyridoxine HCl (Vitamin B6) 50 mg PO DAILY [facility] Stop: 05/16/18 08:59 Last Admin: 03/20/18 08:38 Dose: 50 mg Tamsulosin HCl (Flomax) 0.4 mg PO HS [facility] Stop: 05/16/18 20:59 Last Admin: 03/19/18 20:41 Dose: 0.4 mg General: demented HEENT: NC/AT Neck: Supple Lungs: CTAB Cardiovascular: RRR, Normal S1, Normal S2 Abdomen: soft, non-tender Extremities: clear Neurological: no change Internal Medicine Assmt/Plan - Assessment Assessment: dementia 5150 hold danger to others seizure disorder hypothyroidism htn hyperlipidemia - Plan Plan: as per psych will monitor Nutritional Asmnt/Malnutr-PDOC - Dietary Evaluation Malnutrition Findings (Please click <Entered> for more info): Nutritional Asmnt/Malnutrition Start: 03/17/18 14: 04 Text: Status: Active Freq: Protocol: Document 03/17/18 14:04 [email or web address] (Rec: 03/17/18 14:13 [email or web address] [facility]) Nutritional Asmnt/Malnutrition Patient General Information Nutritional Screening Consult Diagnosis psychosis nos Pertinent Medical Hx/Surgical Hx HTN, thyroid disorder, dementia, constipation, hypothyroidism, schizophrenia Subjective Information Consult recieved for SBS diet. Pt was seen walking to the dining room for lunch. Pt is confused, stated she likes coffee. Pt's lunch tray was seen with small portion as ordered. Not able to provide theraputic diet education per pt mental status. Current Diet Order/ Nutrition Support low sodium 2gm, SBS diet with small portion Pertinent Medications tums, colace, synthroid, zofran, vit B6, ambien Pertinent Labs 03/16 Glucose 110, Na 135, Triglycerides 189, cholesterol 204 Nutritional Hx/Data Height 1.6 m Height (Calculated Centimeters) 160.0 Current Weight (lbs) 58.967 kg Weight (Calculated Kilograms) 59.0 Weight (Calculated Grams) 41039.0 [place] Body Weight 115 Body Mass Index (BMI) 23.0 Weight Status Approriate GI Symptoms GI Symptoms None Last BM not indicated Difficult in: None Food Allergies No Skin Integrity/Comment: [email or web address] 14 Estimated Nutritional Goals BEE in Kcals: Using Current wt Calories/Kcals/Kg 25-30 Kcals Calculated 4904-7866 Protein: Using Current wt Protein g/k.8-1 Protein Calculated 47-59 Fluid: ml 7657-5559 (1ml/kcal) Nutritional Problem No current Nutrition Prob Problem N/A Malnutrition Alert Is there a minimum of two criteria No selected? Query Text:Check all the applicable criteria. A minimum of two criteria are recommended for diagnosis of either severe or non-severe malnutrition. Malnutrition Related to Morbid Obesity Malnutrition related to morbid obesity No Intervention/Recommendation Comments 1. Continue with low sodium 2gm, SBS small portion diet as ordered. Limit food high in oxalate. 2. Monitor PO intake, wt, labs and skin integrity 3. F/U as moderate risk in 3-5 days, PO check 03/20 Expected Outcomes/Goals Expected Outcomes/Goals 1. PO intake to meet at least 75% of nutritional needs. 2. Wt stability, skin to remain intact, labs to approach WNL. Reviewed by Kaykay Thomson RD
[2018-03-20] MEDS: Atorvastatin Calcium 10 MG TAB PO SCH (20:32)
--- NOTE | 2018-03-21 05:08 | Progress Notes ---
DATE: SUBJECTIVE: Chart reviewed and the patient interviewed. Also discussed the patient's condition with the staff and the reviewed records and labs. The patient is still easily agitated. The patient also still seems to be responding to stimuli and needs lots of redirections. The patient also is still taking Lamictal in a dose of 200 mg 3 times a day and Keppra 250 mg twice a day and Namenda and Aricept. She is still restless and easily agitated. ASSESSMENT: The patient is still psychotic and still needs lots of redirections. TREATMENT PLAN: Continue to monitor behavior and condition closely. Also continue adjusting psychotropic medications and work on behavioral modification. JOB# [id number]
[2018-03-21] MEDS: Levothyroxine 0.05 Mg Tab PO SCH (06:42)
[2018-03-21] MEDS: Benztropine 1 MG TAB PO SCH ×2 (10:04→16:41)
[2018-03-21] MEDS: Multivitamin w/ Minerals Tab PO SCH (10:04)
--- NOTE | 2018-03-21 17:15 | Internal Medicine Prog Note ---
Internal Medicine Subjective - Subjective Service Date: 03/21/18 Patient is:: awake, confused, other (patient admitted for increase agitation and danger to otheres 5150 hold) Per staff patient has:: no adverse event Internal Medicine Objective - Results Result Diagrams: 03/16/18 20:00 03/16/18 20:00 Recent Labs: Laboratory Last Values WBC 6.7 Th/cmm (4.8-10.8) 03/16/18 20:00 RBC 4.11 Mil/cmm (3.80-5.10) 03/16/18 20:00 Hgb 12.6 gm/dL (12-16) 03/16/18 20:00 Hct 37.7 % (41.0-60) L 03/16/18 20:00 MCV 91.6 fl (81-100) 03/16/18 20:00 MCH 30.7 pg (27.0-31.0) 03/16/18 20:00 MCHC Differential 33.5 pg (28.0-36.0) 03/16/18 20:00 RDW 12.7 % (11.5-20.0) 03/16/18 20:00 Plt Count 261 Th/cmm (150-400) 03/16/18 20:00 MPV 7.4 fl 03/16/18 20:00 Neutrophils % 58.9 % (40.0-80.0) 03/16/18 20:00 Lymphocytes % 31.5 % (20.0-50.0) 03/16/18 20:00 Monocytes % 6.6 % (2.0-10.0) 03/16/18 20:00 Eosinophils % 2.4 % (0.0-5.0) 03/16/18 20:00 Basophils % 0.6 % (0.0-2.0) 03/16/18 20:00 Sodium 135 mEq/L (136-145) L 03/16/18 20:00 Potassium 3.7 mEq/L (3.5-5.1) 03/16/18 20:00 Chloride 99 mEq/L (98-107) 03/16/18 20:00 Carbon Dioxide 27.2 mEq/L (21.0-31.0) 03/16/18 20:00 Anion Gap 12.5 (7.0-16.0) 01/17/19 20:00 BUN 20 mg/dL (7-25) 03/16/18 20:00 Creatinine 1.2 mg/dL (0.6-1.2) 03/16/18 20:00 Est GFR ( Amer) 58.4 ml/min (>90) 03/16/18 20:00 Est GFR (Non-Af Amer) 48.2 ml/min 03/16/18 20:00 BUN/Creatinine Ratio 16.7 03/16/18 20:00 Glucose 110 mg/dL (70-105) H 03/16/18 20:00 Calcium 10.1 mg/dL (8.6-10.3) 03/16/18 20:00 Total Bilirubin 0.4 mg/dL (0.3-1.0) 03/16/18 20:00 AST 21 U/L (13-39) 03/16/18 20:00 ALT 16 U/L (7-52) 03/16/18 20:00 Alkaline Phosphatase 152 U/L (34-104) H 03/16/18 20:00 Total Protein 7.6 gm/dL (6.0-8.3) 03/16/18 20:00 Albumin 4.4 gm/dL (3.7-5.3) 03/16/18 20:00 Globulin 3.2 gm/dL 03/16/18 20:00 Albumin/Globulin Ratio 1.4 (1.0-1.8) 03/16/18 20:00 Triglycerides 189 mg/dL (<150) H 03/16/18 20:00 Cholesterol 204 mg/dL (<200) H 03/16/18 20:00 LDL Cholesterol Direct 86 mg/dL (75-193) 03/16/18 20:00 HDL Cholesterol 78 mg/dL (23-92) 03/16/18 20:00 TSH 5.11 uIU/ml (0.34-5.60) 03/16/18 20:00 RPR NONREACTIVE (NONREACTIVE) 03/16/18 20:00 - Physical Exam Vitals and I&O: Vital Signs Temp 98.3 F 03/21/18 06:22 Pulse 73 03/21/18 10:04 Resp 20 03/21/18 06:22 BP 103/64 03/21/18 10:04 Pulse Ox 100 03/21/18 06:22 Intake & Output 03/20/18 03/21/18 03/21/18 18:59 06:59 18:59 Intake Total 1000 300 Balance 1000 300 Intake: Oral 1000 300 Other: # Voids 4 2 # Bowel Movements 1 0 Active Medications: Current Medications Acetaminophen (Tylenol) 650 mg PO Q4H PRN PRN Reason: Mild Pain / Temp above 100 Stop: 05/15/18 20:56 Acetaminophen/Hydrocodone Bitart ([place] 5mg/325mg) 1 tab PO Q6H PRN PRN Reason: Pain (Moderate) Stop: 05/15/18 21:49 Atenolol (Tenormin) 25 mg PO DAILY [facility] Stop: 05/16/18 08:59 Last Admin: 03/21/18 10:04 Dose: 25 mg Atorvastatin Calcium (Lipitor) 20 mg PO HS [facility]; Protocol Stop: 05/16/18 20:59 Last Admin: 03/20/18 20:32 Dose: 20 mg Benztropine Mesylate (Cogentin) 1 mg PO BID [facility] Stop: 05/16/18 08:59 Last Admin: 03/21/18 16:41 Dose: 1 mg Calcium Carbonate (Tums) 500 mg PO TIDWM [facility] Stop: 05/16/18 07:59 Last Admin: 03/21/18 16:41 Dose: 500 mg Docusate Sodium (Colace) 250 mg PO DAILY [facility] Stop: 05/16/18 08:59 Last Admin: 03/21/18 10:04 Dose: 250 mg Donepezil HCl (Aricept) 10 mg PO [facility] Stop: 05/16/18 20:59 Last Admin: 03/20/18 20:32 Dose: 10 mg Lamotrigine (Lamictal) 200 mg PO TID [facility]; Protocol Stop: 05/16/18 08:59 Last Admin: 03/21/18 13:49 Dose: 200 mg Levetiracetam (Keppra) 250 mg PO BID [facility] Stop: 05/16/18 08:59 Last Admin: 03/21/18 16:41 Dose: 250 mg Levothyroxine Sodium (Synthroid) 0.05 mg PO QDAC [facility] Stop: 05/16/18 07:29 Last Admin: 03/21/18 06:42 Dose: Not Given Lorazepam (Ativan) 0.5 mg PO Q4H PRN; Protocol PRN Reason: Anxiety Stop: 05/15/18 20:56 Last Admin: 03/21/18 16:41 Dose: 0.5 mg Memantine (Namenda) 5 mg PO BID [facility] Stop: 05/16/18 08:59 Last Admin: 03/21/18 16:41 Dose: 5 mg Ondansetron HCl (Zofran Odt) 4 mg PO Q8H PRN PRN Reason: Nausea Stop: 05/15/18 21:27 Pyridoxine HCl (Vitamin B6) 50 mg PO DAILY [facility] Stop: 05/16/18 08:59 Last Admin: 03/21/18 10:03 Dose: 50 mg Tamsulosin HCl (Flomax) 0.4 mg PO HS [facility] Stop: 05/16/18 20:59 Last Admin: 03/20/18 20:33 Dose: 0.4 mg General: demented HEENT: NC/AT Neck: Supple Lungs: CTAB Cardiovascular: RRR, Normal S1, Normal S2 Abdomen: soft, non-tender Extremities: clear Neurological: no change Internal Medicine Assmt/Plan - Assessment Assessment: dementia 5150 hold danger to others seizure disorder hypothyroidism htn hyperlipidemia - Plan Plan: fall precautions cpm Nutritional Asmnt/Malnutr-PDOC - Dietary Evaluation Malnutrition Findings (Please click <Entered> for more info): Nutritional Asmnt/Malnutrition Start: 03/17/18 14: 04 Text: Status: Active Freq: Protocol: Document 03/17/18 14:04 [email or web address] (Rec: 03/17/18 14:13 [email or web address] [facility]) Nutritional Asmnt/Malnutrition Patient General Information Nutritional Screening Consult Diagnosis psychosis nos Pertinent Medical Hx/Surgical Hx HTN, thyroid disorder, dementia, constipation, hypothyroidism, schizophrenia Subjective Information Consult recieved for SBS diet. Pt was seen walking to the dining room for lunch. Pt is confused, stated she likes coffee. Pt's lunch tray was seen with small portion as ordered. Not able to provide theraputic diet education per pt mental status. Current Diet Order/ Nutrition Support low sodium 2gm, SBS diet with small portion Pertinent Medications tums, colace, synthroid, zofran, vit B6, ambien Pertinent Labs 03/16 Glucose 110, Na 135, Triglycerides 189, cholesterol 204 Nutritional Hx/Data Height 5 ft 3 in Height (Calculated Centimeters) 160.0 Current Weight (lbs) 130 lb Weight (Calculated Kilograms) 59.0 Weight (Calculated Grams) 67701.0 [place] Body Weight 115 Body Mass Index (BMI) 23.0 Weight Status Approriate GI Symptoms GI Symptoms None Last BM not indicated Difficult in: None Food Allergies No Skin Integrity/Comment: katarina, layne 14 Estimated Nutritional Goals BEE in Kcals: Using Current wt Calories/Kcals/Kg 25-30 Kcals Calculated 7412-4687 Protein: Using Current wt Protein g/k.8-1 Protein Calculated 47-59 Fluid: ml 5949-6933 (1ml/kcal) Nutritional Problem No current Nutrition Prob Problem N/A Malnutrition Alert Is there a minimum of two criteria No selected? Query Text:Check all the applicable criteria. A minimum of two criteria are recommended for diagnosis of either severe or non-severe malnutrition. Malnutrition Related to Morbid Obesity Malnutrition related to morbid obesity No Intervention/Recommendation Comments 1. Continue with low sodium 2gm, SBS small portion diet as ordered. Limit food high in oxalate. 2. Monitor PO intake, wt, labs and skin integrity 3. F/U as moderate risk in 3-5 days, PO check 03/20 Expected Outcomes/Goals Expected Outcomes/Goals 1. PO intake to meet at least 75% of nutritional needs. 2. Wt stability, skin to remain intact, labs to approach WNL. Reviewed by Kaykay Thomson RD
[2018-03-21] MEDS: Atorvastatin Calcium 10 MG TAB PO SCH (20:40)
--- NOTE | 2018-03-22 02:42 | Progress Notes ---
DATE: 03/21/2018 PSYCHIATRIC PROGRESS NOTE SUBJECTIVE: Chart reviewed and the patient interviewed. Also discussed the patient's condition with the staff and reviewed records and labs. The patient is still easily agitated and the patient is still actively responding to stimuli. The patient also is confused and still needs lots of redirections. The patient also is forgetful and have difficulty remembering things. Otherwise, the patient is compliant with taking her medications. ASSESSMENT: The patient is still agitated and psychotic. TREATMENT PLAN: Continue Lamictal, Namenda, and ____ will adjust the dose. Also, continue to work on ineffective coping and on agitation and we will continue to follow up. JOB# [id number]
[2018-03-22] MEDS: Levothyroxine 0.05 Mg Tab PO SCH (06:48)
[2018-03-22] MEDS: Multivitamin w/ Minerals Tab PO SCH (08:40)
--- NOTE | 2018-03-22 15:11 | Internal Medicine Prog Note ---
Internal Medicine Subjective - Subjective Patient seen and examined:: chart reviewed Patient is:: awake, confused, other (remains easily agitated) Per staff patient has:: no adverse event Internal Medicine Objective - Results Result Diagrams: 03/16/18 20:00 03/16/18 20:00 Recent Labs: Laboratory Last Values WBC 6.7 Th/cmm (4.8-10.8) 03/16/18 20:00 RBC 4.11 Mil/cmm (3.80-5.10) 03/16/18 20:00 Hgb 12.6 gm/dL (12-16) 03/16/18 20:00 Hct 37.7 % (41.0-60) L 03/16/18 20:00 MCV 91.6 fl (81-100) 03/16/18 20:00 MCH 30.7 pg (27.0-31.0) 03/16/18 20:00 MCHC Differential 33.5 pg (28.0-36.0) 03/16/18 20:00 RDW 12.7 % (11.5-20.0) 03/16/18 20:00 Plt Count 261 Th/cmm (150-400) 03/16/18 20:00 MPV 7.4 fl 03/16/18 20:00 Neutrophils % 58.9 % (40.0-80.0) 03/16/18 20:00 Lymphocytes % 31.5 % (20.0-50.0) 03/16/18 20:00 Monocytes % 6.6 % (2.0-10.0) 03/16/18 20:00 Eosinophils % 2.4 % (0.0-5.0) 03/16/18 20:00 Basophils % 0.6 % (0.0-2.0) 03/16/18 20:00 Sodium 135 mEq/L (136-145) L 03/16/18 20:00 Potassium 3.7 mEq/L (3.5-5.1) 03/16/18 20:00 Chloride 99 mEq/L (98-107) 03/16/18 20:00 Carbon Dioxide 27.2 mEq/L (21.0-31.0) 03/16/18 20:00 Anion Gap 12.5 (7.0-16.0) 03/16/18 20:00 BUN 20 mg/dL (7-25) 03/16/18 20:00 Creatinine 1.2 mg/dL (0.6-1.2) 03/16/18 20:00 Est GFR ( Amer) 58.4 ml/min (>90) 03/16/18 20:00 Est GFR (Non-Af Amer) 48.2 ml/min 03/16/18 20:00 BUN/Creatinine Ratio 16.7 03/16/18 20:00 Glucose 110 mg/dL (70-105) H 03/16/18 20:00 Calcium 10.1 mg/dL (8.6-10.3) 03/16/18 20:00 Total Bilirubin 0.4 mg/dL (0.3-1.0) 03/16/18 20:00 AST 21 U/L (13-39) 03/16/18 20:00 ALT 16 U/L (7-52) 03/16/18 20:00 Alkaline Phosphatase 152 U/L (34-104) H 03/16/18 20:00 Total Protein 7.6 gm/dL (6.0-8.3) 03/16/18 20:00 Albumin 4.4 gm/dL (3.7-5.3) 03/16/18 20:00 Globulin 3.2 gm/dL 03/16/18 20:00 Albumin/Globulin Ratio 1.4 (1.0-1.8) 03/16/18 20:00 Triglycerides 189 mg/dL (<150) H 03/16/18 20:00 Cholesterol 204 mg/dL (<200) H 03/16/18 20:00 LDL Cholesterol Direct 86 mg/dL (75-193) 03/16/18 20:00 HDL Cholesterol 78 mg/dL (23-92) 03/16/18 20:00 TSH 5.11 uIU/ml (0.34-5.60) 03/16/18 20:00 RPR NONREACTIVE (NONREACTIVE) 03/16/18 20:00 - Physical Exam Vitals and I&O: Vital Signs Temp 98.2 F 03/22/18 06:27 Pulse 64 03/22/18 08:40 Resp 19 03/22/18 06:27 BP 112/69 03/22/18 08:40 Pulse Ox 100 03/22/18 06:27 Intake & Output 03/21/18 03/22/18 03/22/18 18:59 06:59 18:59 Intake Total 240 Balance 240 Intake: Oral 240 Other: # Voids 1 # Bowel Movements 0 Active Medications: Current Medications Acetaminophen (Tylenol) 650 mg PO Q4H PRN PRN Reason: Mild Pain / Temp above 100 Stop: 05/15/18 20:56 Acetaminophen/Hydrocodone Bitart ([place] 5mg/325mg) 1 tab PO Q6H PRN PRN Reason: Pain (Moderate) Stop: 05/15/18 21:49 Atenolol (Tenormin) 25 mg PO DAILY [facility] Stop: 05/16/18 08:59 Last Admin: 03/22/18 08:40 Dose: 25 mg Atorvastatin Calcium (Lipitor) 20 mg PO HS [facility]; Protocol Stop: 05/16/18 20:59 Last Admin: 03/21/18 20:40 Dose: 20 mg Calcium Carbonate (Tums) 500 mg PO TIDWM [facility] Stop: 05/16/18 07:59 Last Admin: 03/22/18 13:00 Dose: Not Given Docusate Sodium (Colace) 250 mg PO DAILY [facility] Stop: 05/16/18 08:59 Last Admin: 03/22/18 08:40 Dose: 250 mg Donepezil HCl (Aricept) 10 mg PO HS [facility] Stop: 05/16/18 20:59 Last Admin: 03/21/18 20:41 Dose: 10 mg Lamotrigine (Lamictal) 200 mg PO TID [facility]; Protocol Stop: 05/16/18 08:59 Last Admin: 03/22/18 13:55 Dose: 200 mg Levetiracetam (Keppra) 250 mg PO BID [facility] Stop: 05/16/18 08:59 Last Admin: 03/22/18 08:40 Dose: 250 mg Levothyroxine Sodium (Synthroid) 0.05 mg PO QDAC [facility] Stop: 05/16/18 07:29 Last Admin: 03/22/18 06:48 Dose: 0.05 mg Lorazepam (Ativan) 0.5 mg PO Q4H PRN; Protocol PRN Reason: Anxiety Stop: 05/15/18 20:56 Last Admin: 03/21/18 20:41 Dose: 0.5 mg Memantine (Namenda) 5 mg PO BID [facility] Stop: 05/16/18 08:59 Last Admin: 03/22/18 08:40 Dose: 5 mg Ondansetron HCl (Zofran Odt) 4 mg PO Q8H PRN PRN Reason: Nausea Stop: 05/15/18 21:27 Pyridoxine HCl (Vitamin B6) 50 mg PO DAILY [facility] Stop: 05/16/18 08:59 Last Admin: 03/22/18 08:40 Dose: 50 mg Tamsulosin HCl (Flomax) 0.4 mg PO HS [facility] Stop: 05/16/18 20:59 Last Admin: 03/21/18 20:40 Dose: 0.4 mg General: demented HEENT: NC/AT Neck: Supple Lungs: CTAB Cardiovascular: RRR, Normal S1, Normal S2 Abdomen: soft, non-tender Extremities: clear Neurological: no change Internal Medicine Assmt/Plan - Assessment Assessment: dementia 5150 hold danger to others seizure disorder hypothyroidism htn hyperlipidemia - Plan Plan: as per psych will monitor pt. continue psych meds Nutritional Asmnt/Malnutr-PDOC - Dietary Evaluation Malnutrition Findings (Please click <Entered> for more info): Nutritional Asmnt/Malnutrition Start: 03/17/18 14: 04 Text: Status: Active Freq: Protocol: Document 03/17/18 14:04 [email or web address] (Rec: 03/17/18 14:13 [email or web address] [facility]) Nutritional Asmnt/Malnutrition Patient General Information Nutritional Screening Consult Diagnosis psychosis nos Pertinent Medical Hx/Surgical Hx HTN, thyroid disorder, dementia, constipation, hypothyroidism, schizophrenia Subjective Information Consult recieved for SBS diet. Pt was seen walking to the dining room for lunch. Pt is confused, stated she likes coffee. Pt's lunch tray was seen with small portion as ordered. Not able to provide theraputic diet education per pt mental status. Current Diet Order/ Nutrition Support low sodium 2gm, SBS diet with small portion Pertinent Medications tums, colace, synthroid, zofran, vit B6, ambien Pertinent Labs 03/16 Glucose 110, Na 135, Triglycerides 189, cholesterol 204 Nutritional Hx/Data Height 1.6 m Height (Calculated Centimeters) 160.0 Current Weight (lbs) 58.967 kg Weight (Calculated Kilograms) 59.0 Weight (Calculated Grams) 64257.0 [place] Body Weight 115 Body Mass Index (BMI) 23.0 Weight Status Approriate GI Symptoms GI Symptoms None Last BM not indicated Difficult in: None Food Allergies No Skin Integrity/Comment: intact, layne 14 Estimated Nutritional Goals BEE in Kcals: Using Current wt Calories/Kcals/Kg 25-30 Kcals Calculated 8889-4196 Protein: Using Current wt Protein g/k.8-1 Protein Calculated 47-59 Fluid: ml 7366-4623 (1ml/kcal) Nutritional Problem No current Nutrition Prob Problem N/A Malnutrition Alert Is there a minimum of two criteria No selected? Query Text:Check all the applicable criteria. A minimum of two criteria are recommended for diagnosis of either severe or non-severe malnutrition. Malnutrition Related to Morbid Obesity Malnutrition related to morbid obesity No Intervention/Recommendation Comments 1. Continue with low sodium 2gm, SBS small portion diet as ordered. Limit food high in oxalate. 2. Monitor PO intake, wt, labs and skin integrity 3. F/U as moderate risk in 3-5 days, PO check 03/20 Expected Outcomes/Goals Expected Outcomes/Goals 1. PO intake to meet at least 75% of nutritional needs. 2. Wt stability, skin to remain intact, labs to approach WNL. Reviewed by Kaykay Thomson RD
--- NOTE | 2018-03-22 16:23 | Progress Notes ---
DATE: SUBJECTIVE: Chart reviewed and the patient interviewed. Also discussed the patient's condition with the staff and reviewed records and labs. The patient is still easily agitated and easily irritable. The patient also is still having labile affect and still has episodes of anger, but seems to be less than before. The patient also still stripping her clothes, especially in the morning and yesterday, the patient was stripping her clothes and came out of her room naked except with her diapers. She also still needs lots of redirections. Otherwise, the patient is compliant with taking her medications with no side effects. ASSESSMENT: The patient is still psychotic and needs redirections. TREATMENT PLAN: Continue to monitor behavior and condition closely. Also, continue adjusting psychotropic medications and working on behavioural modification. JOB# [id number]
[2018-03-22] MEDS: Atorvastatin Calcium 10 MG TAB PO SCH (20:23)
[2018-03-23] MEDS: Levothyroxine 0.05 Mg Tab PO SCH (06:43)
[2018-03-23] MEDS: Multivitamin w/ Minerals Tab PO SCH (08:48)
--- NOTE | 2018-03-23 19:14 | Internal Medicine Prog Note ---
Internal Medicine Subjective - Subjective Service Date: 03/23/18 Patient is:: awake, confused, other (remains easily agitated) Per staff patient has:: no adverse event Internal Medicine Objective - Results Result Diagrams: 03/16/18 20:00 03/16/18 20:00 Recent Labs: Laboratory Last Values WBC 6.7 Th/cmm (4.8-10.8) 03/16/18 20:00 RBC 4.11 Mil/cmm (3.80-5.10) 03/16/18 20:00 Hgb 12.6 gm/dL (12-16) 03/16/18 20:00 Hct 37.7 % (41.0-60) L 03/16/18 20:00 MCV 91.6 fl (81-100) 03/16/18 20:00 MCH 30.7 pg (27.0-31.0) 03/16/18 20:00 MCHC Differential 33.5 pg (28.0-36.0) 03/16/18 20:00 RDW 12.7 % (11.5-20.0) 03/16/18 20:00 Plt Count 261 Th/cmm (150-400) 03/16/18 20:00 MPV 7.4 fl 03/16/18 20:00 Neutrophils % 58.9 % (40.0-80.0) 03/16/18 20:00 Lymphocytes % 31.5 % (20.0-50.0) 03/16/18 20:00 Monocytes % 6.6 % (2.0-10.0) 03/16/18 20:00 Eosinophils % 2.4 % (0.0-5.0) 03/16/18 20:00 Basophils % 0.6 % (0.0-2.0) 03/16/18 20:00 Sodium 135 mEq/L (136-145) L 03/16/18 20:00 Potassium 3.7 mEq/L (3.5-5.1) 03/16/18 20:00 Chloride 99 mEq/L (98-107) 03/16/18 20:00 Carbon Dioxide 27.2 mEq/L (21.0-31.0) 03/16/18 20:00 Anion Gap 12.5 (7.0-16.0) 03/16/18 20:00 BUN 20 mg/dL (7-25) 03/16/18 20:00 Creatinine 1.2 mg/dL (0.6-1.2) 03/16/18 20:00 Est GFR ( Amer) 58.4 ml/min (>90) 03/16/18 20:00 Est GFR (Non-Af Amer) 48.2 ml/min 03/16/18 20:00 BUN/Creatinine Ratio 16.7 03/16/18 20:00 Glucose 110 mg/dL (70-105) H 03/16/18 20:00 Calcium 10.1 mg/dL (8.6-10.3) 03/16/18 20:00 Total Bilirubin 0.4 mg/dL (0.3-1.0) 03/16/18 20:00 AST 21 U/L (13-39) 03/16/18 20:00 ALT 16 U/L (7-52) 03/16/18 20:00 Alkaline Phosphatase 152 U/L (34-104) H 03/16/18 20:00 Total Protein 7.6 gm/dL (6.0-8.3) 03/16/18 20:00 Albumin 4.4 gm/dL (3.7-5.3) 03/16/18 20:00 Globulin 3.2 gm/dL 03/16/18 20:00 Albumin/Globulin Ratio 1.4 (1.0-1.8) 03/16/18 20:00 Triglycerides 189 mg/dL (<150) H 03/16/18 20:00 Cholesterol 204 mg/dL (<200) H 03/16/18 20:00 LDL Cholesterol Direct 86 mg/dL (75-193) 03/16/18 20:00 HDL Cholesterol 78 mg/dL (23-92) 03/16/18 20:00 TSH 5.11 uIU/ml (0.34-5.60) 03/16/18 20:00 RPR NONREACTIVE (NONREACTIVE) 03/16/18 20:00 - Physical Exam Vitals and I&O: Vital Signs Temp 98.4 F 03/23/18 14:00 Pulse 88 03/23/18 14:00 Resp 20 03/23/18 14:00 BP 117/51 03/23/18 14:00 Pulse Ox 99 03/23/18 14:00 Intake & Output 03/23/18 03/23/18 03/24/18 06:59 18:59 06:59 Intake Total 120 1000 Balance 120 1000 Intake: Oral 120 1000 Other: # Voids 3 4 # Bowel Movements 1 Active Medications: Current Medications Acetaminophen (Tylenol) 650 mg PO Q4H PRN PRN Reason: Mild Pain / Temp above 100 Stop: 05/15/18 20:56 Acetaminophen/Hydrocodone Bitart ([place] 5mg/325mg) 1 tab PO Q6H PRN PRN Reason: Pain (Moderate) Stop: 05/15/18 21:49 Atenolol (Tenormin) 25 mg PO DAILY [facility] Stop: 05/16/18 08:59 Last Admin: 03/23/18 08:48 Dose: Not Given Atorvastatin Calcium (Lipitor) 20 mg PO HS [facility]; Protocol Stop: 05/16/18 20:59 Last Admin: 03/22/18 20:23 Dose: 20 mg Calcium Carbonate (Tums) 500 mg PO TIDWM [facility] Stop: 05/16/18 07:59 Last Admin: 03/23/18 16:29 Dose: 500 mg Docusate Sodium (Colace) 250 mg PO DAILY [facility] Stop: 05/16/18 08:59 Last Admin: 03/23/18 08:49 Dose: 250 mg Donepezil HCl (Aricept) 10 mg PO HS [facility] Stop: 05/16/18 20:59 Last Admin: 03/22/18 20:23 Dose: 10 mg Lamotrigine (Lamictal) 200 mg PO TID [facility]; Protocol Stop: 05/16/18 08:59 Last Admin: 03/23/18 13:12 Dose: 200 mg Levetiracetam (Keppra) 250 mg PO BID [facility] Stop: 05/16/18 08:59 Last Admin: 03/23/18 16:29 Dose: 250 mg Levothyroxine Sodium (Synthroid) 0.05 mg PO QDAC [facility] Stop: 05/16/18 07:29 Last Admin: 03/23/18 06:43 Dose: Not Given Lorazepam (Ativan) 0.5 mg PO Q4H PRN; Protocol PRN Reason: Anxiety Stop: 05/15/18 20:56 Last Admin: 03/22/18 20:23 Dose: 0.5 mg Memantine (Namenda) 5 mg PO BID [facility] Stop: 05/16/18 08:59 Last Admin: 03/23/18 16:29 Dose: 5 mg Ondansetron HCl (Zofran Odt) 4 mg PO Q8H PRN PRN Reason: Nausea Stop: 05/15/18 21:27 Pyridoxine HCl (Vitamin B6) 50 mg PO DAILY [facility] Stop: 05/16/18 08:59 Last Admin: 03/23/18 08:48 Dose: 50 mg Tamsulosin HCl (Flomax) 0.4 mg PO HS [facility] Stop: 05/16/18 20:59 Last Admin: 03/22/18 20:22 Dose: 0.4 mg General: demented HEENT: NC/AT Neck: Supple Lungs: CTAB Cardiovascular: RRR, Normal S1, Normal S2 Abdomen: soft, non-tender Extremities: clear Neurological: no change Internal Medicine Assmt/Plan - Assessment Assessment: dementia 5150 hold danger to others seizure disorder hypothyroidism htn hyperlipidemia - Plan Plan: fall precautions cpm Nutritional Asmnt/Malnutr-PDOC - Dietary Evaluation Malnutrition Findings (Please click <Entered> for more info): Nutritional Asmnt/Malnutrition Start: 03/17/18 14: 04 Text: Status: Active Freq: Protocol: Document 03/17/18 14:04 [email or web address] (Rec: 03/17/18 14:13 [email or web address] [email or web address]) Nutritional Asmnt/Malnutrition Patient General Information Nutritional Screening Consult Diagnosis psychosis nos Pertinent Medical Hx/Surgical Hx HTN, thyroid disorder, dementia, constipation, hypothyroidism, schizophrenia Subjective Information Consult recieved for SBS diet. Pt was seen walking to the dining room for lunch. Pt is confused, stated she likes coffee. Pt's lunch tray was seen with small portion as ordered. Not able to provide theraputic diet education per pt mental status. Current Diet Order/ Nutrition Support low sodium 2gm, SBS diet with small portion Pertinent Medications tums, colace, synthroid, zofran, vit B6, ambien Pertinent Labs 03/16 Glucose 110, Na 135, Triglycerides 189, cholesterol 204 Nutritional Hx/Data Height 5 ft 3 in Height (Calculated Centimeters) 160.0 Current Weight (lbs) 130 lb Weight (Calculated Kilograms) 59.0 Weight (Calculated Grams) 57960.0 [place] Body Weight 115 Body Mass Index (BMI) 23.0 Weight Status Approriate GI Symptoms GI Symptoms None Last BM not indicated Difficult in: None Food Allergies No Skin Integrity/Comment: katarina, layne 14 Estimated Nutritional Goals BEE in Kcals: Using Current wt Calories/Kcals/Kg 25-30 Kcals Calculated 3184-7940 Protein: Using Current wt Protein g/k.8-1 Protein Calculated 47-59 Fluid: ml 6285-4554 (1ml/kcal) Nutritional Problem No current Nutrition Prob Problem N/A Malnutrition Alert Is there a minimum of two criteria No selected? Query Text:Check all the applicable criteria. A minimum of two criteria are recommended for diagnosis of either severe or non-severe malnutrition. Malnutrition Related to Morbid Obesity Malnutrition related to morbid obesity No Intervention/Recommendation Comments 1. Continue with low sodium 2gm, SBS small portion diet as ordered. Limit food high in oxalate. 2. Monitor PO intake, wt, labs and skin integrity 3. F/U as moderate risk in 3-5 days, PO check 03/20 Expected Outcomes/Goals Expected Outcomes/Goals 1. PO intake to meet at least 75% of nutritional needs. 2. Wt stability, skin to remain intact, labs to approach WNL. Reviewed by Kaykay Thomson RD
[2018-03-23] MEDS: Atorvastatin Calcium 10 MG TAB PO SCH (21:43)
[2018-03-24] MEDS: Levothyroxine 0.05 Mg Tab PO SCH (06:44)
[2018-03-24] MEDS: Multivitamin w/ Minerals Tab PO SCH (08:24)
--- NOTE | 2018-03-24 16:59 | Internal Medicine Prog Note ---
Internal Medicine Subjective - Subjective Patient is:: awake, confused, other (remains easily agitated) Per staff patient has:: no adverse event Internal Medicine Objective - Results Result Diagrams: 03/16/18 20:00 03/16/18 20:00 Recent Labs: Laboratory Last Values WBC 6.7 Th/cmm (4.8-10.8) 03/16/18 20:00 RBC 4.11 Mil/cmm (3.80-5.10) 03/16/18 20:00 Hgb 12.6 gm/dL (12-16) 03/16/18 20:00 Hct 37.7 % (41.0-60) L 03/16/18 20:00 MCV 91.6 fl (81-100) 03/16/18 20:00 MCH 30.7 pg (27.0-31.0) 03/16/18 20:00 MCHC Differential 33.5 pg (28.0-36.0) 03/16/18 20:00 RDW 12.7 % (11.5-20.0) 03/16/18 20:00 Plt Count 261 Th/cmm (150-400) 03/16/18 20:00 MPV 7.4 fl 03/16/18 20:00 Neutrophils % 58.9 % (40.0-80.0) 03/16/18 20:00 Lymphocytes % 31.5 % (20.0-50.0) 03/16/18 20:00 Monocytes % 6.6 % (2.0-10.0) 03/16/18 20:00 Eosinophils % 2.4 % (0.0-5.0) 03/16/18 20:00 Basophils % 0.6 % (0.0-2.0) 03/16/18 20:00 Sodium 135 mEq/L (136-145) L 03/16/18 20:00 Potassium 3.7 mEq/L (3.5-5.1) 03/16/18 20:00 Chloride 99 mEq/L (98-107) 03/16/18 20:00 Carbon Dioxide 27.2 mEq/L (21.0-31.0) 03/16/18 20:00 Anion Gap 12.5 (7.0-16.0) 03/16/18 20:00 BUN 20 mg/dL (7-25) 03/16/18 20:00 Creatinine 1.2 mg/dL (0.6-1.2) 03/16/18 20:00 Est GFR ( Amer) 58.4 ml/min (>90) 03/16/18 20:00 Est GFR (Non-Af Amer) 48.2 ml/min 03/16/18 20:00 BUN/Creatinine Ratio 16.7 03/16/18 20:00 Glucose 110 mg/dL (70-105) H 03/16/18 20:00 Calcium 10.1 mg/dL (8.6-10.3) 03/16/18 20:00 Total Bilirubin 0.4 mg/dL (0.3-1.0) 03/16/18 20:00 AST 21 U/L (13-39) 03/16/18 20:00 ALT 16 U/L (7-52) 03/16/18 20:00 Alkaline Phosphatase 152 U/L (34-104) H 03/16/18 20:00 Total Protein 7.6 gm/dL (6.0-8.3) 03/16/18 20:00 Albumin 4.4 gm/dL (3.7-5.3) 03/16/18 20:00 Globulin 3.2 gm/dL 03/16/18 20:00 Albumin/Globulin Ratio 1.4 (1.0-1.8) 03/16/18 20:00 Triglycerides 189 mg/dL (<150) H 03/16/18 20:00 Cholesterol 204 mg/dL (<200) H 03/16/18 20:00 LDL Cholesterol Direct 86 mg/dL (75-193) 03/16/18 20:00 HDL Cholesterol 78 mg/dL (23-92) 03/16/18 20:00 TSH 5.11 uIU/ml (0.34-5.60) 03/16/18 20:00 RPR NONREACTIVE (NONREACTIVE) 03/16/18 20:00 - Physical Exam Vitals and I&O: Vital Signs Temp 97.7 F 03/24/18 14:00 Pulse 62 03/24/18 14:00 Resp 18 03/24/18 14:00 BP 113/69 03/24/18 14:00 Pulse Ox 96 03/24/18 14:00 Intake & Output 03/23/18 03/24/18 03/24/18 18:59 06:59 18:59 Intake Total 1000 360 Balance 1000 360 Intake: Oral 1000 360 Other: # Voids 4 1 # Bowel Movements 1 Active Medications: Current Medications Acetaminophen (Tylenol) 650 mg PO Q4H PRN PRN Reason: Mild Pain / Temp above 100 Stop: 05/15/18 20:56 Acetaminophen/Hydrocodone Bitart ([place] 5mg/325mg) 1 tab PO Q6H PRN PRN Reason: Pain (Moderate) Stop: 05/15/18 21:49 Last Admin: 03/24/18 01:36 Dose: 1 tab Atenolol (Tenormin) 25 mg PO DAILY [facility] Stop: 05/16/18 08:59 Last Admin: 03/24/18 08:23 Dose: Not Given Atorvastatin Calcium (Lipitor) 20 mg PO HS [facility]; Protocol Stop: 05/16/18 20:59 Last Admin: 03/23/18 21:43 Dose: 20 mg Calcium Carbonate (Tums) 500 mg PO TIDWM [facility] Stop: 05/16/18 07:59 Last Admin: 03/24/18 12:37 Dose: 500 mg Docusate Sodium (Colace) 250 mg PO DAILY [facility] Stop: 05/16/18 08:59 Last Admin: 03/24/18 08:24 Dose: 250 mg Donepezil HCl (Aricept) 10 mg PO HS [facility] Stop: 05/16/18 20:59 Last Admin: 03/23/18 21:43 Dose: 10 mg Lamotrigine (Lamictal) 200 mg PO TID [facility]; Protocol Stop: 05/16/18 08:59 Last Admin: 03/24/18 15:03 Dose: 200 mg Levetiracetam (Keppra) 250 mg PO BID [facility] Stop: 05/16/18 08:59 Last Admin: 03/24/18 08:25 Dose: 250 mg Levothyroxine Sodium (Synthroid) 0.05 mg PO QDAC [facility] Stop: 05/16/18 07:29 Last Admin: 03/24/18 06:44 Dose: 0.05 mg Lorazepam (Ativan) 0.5 mg PO Q4H PRN; Protocol PRN Reason: Anxiety Stop: 05/15/18 20:56 Last Admin: 03/24/18 03:40 Dose: 0.5 mg Memantine (Namenda) 5 mg PO BID [facility] Stop: 05/16/18 08:59 Last Admin: 03/24/18 08:25 Dose: 5 mg Ondansetron HCl (Zofran Odt) 4 mg PO Q8H PRN PRN Reason: Nausea Stop: 05/15/18 21:27 Pyridoxine HCl (Vitamin B6) 50 mg PO DAILY [facility] Stop: 05/16/18 08:59 Last Admin: 03/24/18 08:24 Dose: 50 mg Tamsulosin HCl (Flomax) 0.4 mg PO HS [facility] Stop: 05/16/18 20:59 Last Admin: 03/23/18 21:43 Dose: 0.4 mg General: demented HEENT: NC/AT Neck: Supple Lungs: CTAB Cardiovascular: RRR, Normal S1, Normal S2 Abdomen: soft, non-tender Extremities: clear Neurological: no change Internal Medicine Assmt/Plan - Assessment Assessment: dementia 5150 hold danger to others seizure disorder hypothyroidism htn hyperlipidemia - Plan Plan: as per psych will monitor pt. continue psych meds Nutritional Asmnt/Malnutr-PDOC - Dietary Evaluation Malnutrition Findings (Please click <Entered> for more info): Nutritional Asmnt/Malnutrition Start: 03/17/18 14: 04 Text: Status: Active Freq: Protocol: Document 03/17/18 14:04 [email or web address] (Rec: 03/17/18 14:13 [email or web address] [facility]A) Nutritional Asmnt/Malnutrition Patient General Information Nutritional Screening Consult Diagnosis psychosis nos Pertinent Medical Hx/Surgical Hx HTN, thyroid disorder, dementia, constipation, hypothyroidism, schizophrenia Subjective Information Consult recieved for SBS diet. Pt was seen walking to the dining room for lunch. Pt is confused, stated she likes coffee. Pt's lunch tray was seen with small portion as ordered. Not able to provide theraputic diet education per pt mental status. Current Diet Order/ Nutrition Support low sodium 2gm, SBS diet with small portion Pertinent Medications tums, colace, synthroid, zofran, vit B6, ambien Pertinent Labs 03/16 Glucose 110, Na 135, Triglycerides 189, cholesterol 204 Nutritional Hx/Data Height 1.6 m Height (Calculated Centimeters) 160.0 Current Weight (lbs) 58.967 kg Weight (Calculated Kilograms) 59.0 Weight (Calculated Grams) 22989.0 [place] Body Weight 115 Body Mass Index (BMI) 23.0 Weight Status Approriate GI Symptoms GI Symptoms None Last BM not indicated Difficult in: None Food Allergies No Skin Integrity/Comment: [email or web address] 14 Estimated Nutritional Goals BEE in Kcals: Using Current wt Calories/Kcals/Kg 25-30 Kcals Calculated 2910-0546 Protein: Using Current wt Protein g/k.8-1 Protein Calculated 47-59 Fluid: ml 5335-5837 (1ml/kcal) Nutritional Problem No current Nutrition Prob Problem N/A Malnutrition Alert Is there a minimum of two criteria No selected? Query Text:Check all the applicable criteria. A minimum of two criteria are recommended for diagnosis of either severe or non-severe malnutrition. Malnutrition Related to Morbid Obesity Malnutrition related to morbid obesity No Intervention/Recommendation Comments 1. Continue with low sodium 2gm, SBS small portion diet as ordered. Limit food high in oxalate. 2. Monitor PO intake, wt, labs and skin integrity 3. F/U as moderate risk in 3-5 days, PO check 03/20 Expected Outcomes/Goals Expected Outcomes/Goals 1. PO intake to meet at least 75% of nutritional needs. 2. Wt stability, skin to remain intact, labs to approach WNL. Reviewed by Kaykay Thomson RD
[2018-03-24] MEDS: Atorvastatin Calcium 10 MG TAB PO SCH (20:27)
[2018-03-25] MEDS: Levothyroxine 0.05 Mg Tab PO SCH (06:59)
[2018-03-25] MEDS: Multivitamin w/ Minerals Tab PO SCH (09:09)
--- NOTE | 2018-03-25 18:19 | Progress Notes ---
DATE: 03/25/2018 SUBJECTIVE: A 63-year-old female admitted to the hospital with increased irritability, agitation, had been living in a long term in the [facility], diagnosed with dementia, also aggressive behaviors, irritability. On [id number], the patient is stating that she does not want to talk to me, wants to be left alone, and refusing to speak with me. Per staff, she remains irritable, angry, upset, at times refusing medications, poor impulse control, easily agitated, requiring a lot of prompting, redirection, unclear where she is going to go when she leaves here. ASSESSMENT: The patient remains symptomatic, ongoing psychotic symptoms. The patient coming from [place], but it is unclear if they were going to take her back in her current situation. ASSESSMENT: The patient is psychotic, still labile, irritable, some medication refusals. PLAN: We will continue to monitor. Continue to encourage better med compliance. JOB# [id number]
--- NOTE | 2018-03-25 18:31 | Progress Notes ---
DATE: 03/25/2018 SUBJECTIVE: The patient was seen in her room. The patient is asleep, but easily arousable. The patient appears to be guarded, easily gets frustrated, episodes of agitation, otherwise the patient appears to be in no distress. OBJECTIVE: VITAL SIGNS: Temperature 98.1, heart rate 85, blood pressure 119/69, respirations 20 and 95% on room air. HEENT: Head is atraumatic and normocephalic. Eyes: Bilateral conjunctivae are clear. Bilateral pupils are equally round and reactive. NECK: Supple. No JVD. CARDIOVASCULAR: S1 and S2, without murmur. PULMONARY: Clear to auscultation. GASTROINTESTINAL: Soft and nontender without guarding. Positive bowel sounds. MUSCULOSKELETAL: No clubbing. No cyanosis noted. ASSESSMENT: 1. Schizoaffective disorder. 2. Dementia. 3. Hypertension. 4. Hyperlipidemia. 5. Hypothyroidism. 6. Seizure disorder. PLAN: We will keep the patient inpatient to Psychiatric Unit. We will follow up with a psychiatrist to monitor the patient's condition and behavior. Treatment plans were discussed with the patient's nurse. Treatment plans were discussed with Dr. Pinto. JOB# [id number]
[2018-03-25] MEDS: Atorvastatin Calcium 10 MG TAB PO SCH (21:13)
[2018-03-26] MEDS: Levothyroxine 0.05 Mg Tab PO SCH (06:46)
[2018-03-26] MEDS: Multivitamin w/ Minerals Tab PO SCH (08:33)
--- NOTE | 2018-03-26 12:34 | Internal Medicine Prog Note ---
Internal Medicine Subjective - Subjective Patient seen and examined:: chart reviewed Patient is:: awake, confused, other (irritable,not compliant with meds ) Per staff patient has:: no adverse event Internal Medicine Objective - Results Result Diagrams: 03/16/18 20:00 03/16/18 20:00 Recent Labs: Laboratory Last Values WBC 6.7 Th/cmm (4.8-10.8) 03/16/18 20:00 RBC 4.11 Mil/cmm (3.80-5.10) 03/16/18 20:00 Hgb 12.6 gm/dL (12-16) 03/16/18 20:00 Hct 37.7 % (41.0-60) L 03/16/18 20:00 MCV 91.6 fl (81-100) 03/16/18 20:00 MCH 30.7 pg (27.0-31.0) 03/16/18 20:00 MCHC Differential 33.5 pg (28.0-36.0) 03/16/18 20:00 RDW 12.7 % (11.5-20.0) 03/16/18 20:00 Plt Count 261 Th/cmm (150-400) 03/16/18 20:00 MPV 7.4 fl 03/16/18 20:00 Neutrophils % 58.9 % (40.0-80.0) 03/16/18 20:00 Lymphocytes % 31.5 % (20.0-50.0) 03/16/18 20:00 Monocytes % 6.6 % (2.0-10.0) 03/16/18 20:00 Eosinophils % 2.4 % (0.0-5.0) 03/16/18 20:00 Basophils % 0.6 % (0.0-2.0) 03/16/18 20:00 Sodium 135 mEq/L (136-145) L 03/16/18 20:00 Potassium 3.7 mEq/L (3.5-5.1) 03/16/18 20:00 Chloride 99 mEq/L (98-107) 03/16/18 20:00 Carbon Dioxide 27.2 mEq/L (21.0-31.0) 03/16/18 20:00 Anion Gap 12.5 (7.0-16.0) 03/16/18 20:00 BUN 20 mg/dL (7-25) 03/16/18 20:00 Creatinine 1.2 mg/dL (0.6-1.2) 03/16/18 20:00 Est GFR ( Amer) 58.4 ml/min (>90) 03/16/18 20:00 Est GFR (Non-Af Amer) 48.2 ml/min 03/16/18 20:00 BUN/Creatinine Ratio 16.7 03/16/18 20:00 Glucose 110 mg/dL (70-105) H 03/16/18 20:00 Calcium 10.1 mg/dL (8.6-10.3) 03/16/18 20:00 Total Bilirubin 0.4 mg/dL (0.3-1.0) 03/16/18 20:00 AST 21 U/L (13-39) 03/16/18 20:00 ALT 16 U/L (7-52) 03/16/18 20:00 Alkaline Phosphatase 152 U/L (34-104) H 03/16/18 20:00 Total Protein 7.6 gm/dL (6.0-8.3) 03/16/18 20:00 Albumin 4.4 gm/dL (3.7-5.3) 03/16/18 20:00 Globulin 3.2 gm/dL 03/16/18 20:00 Albumin/Globulin Ratio 1.4 (1.0-1.8) 03/16/18 20:00 Triglycerides 189 mg/dL (<150) H 03/16/18 20:00 Cholesterol 204 mg/dL (<200) H 03/16/18 20:00 LDL Cholesterol Direct 86 mg/dL (75-193) 03/16/18 20:00 HDL Cholesterol 78 mg/dL (23-92) 03/16/18 20:00 TSH 5.11 uIU/ml (0.34-5.60) 03/16/18 20:00 RPR NONREACTIVE (NONREACTIVE) 03/16/18 20:00 - Physical Exam Vitals and I&O: Vital Signs Temp 97.6 F 03/26/18 06:14 Pulse 79 03/26/18 08:31 Resp 19 03/26/18 06:14 BP 126/77 03/26/18 08:31 Pulse Ox 100 03/26/18 06:14 Intake & Output 03/25/18 03/26/18 03/26/18 18:59 06:59 18:59 Intake Total 1000 120 Balance 1000 120 Intake: Oral 1000 120 Other: # Voids 4 3 # Bowel Movements 1 Active Medications: Current Medications Acetaminophen (Tylenol) 650 mg PO Q4H PRN PRN Reason: Mild Pain / Temp above 100 Stop: 05/15/18 20:56 Acetaminophen/Hydrocodone Bitart ([place] 5mg/325mg) 1 tab PO Q6H PRN PRN Reason: Pain (Moderate) Stop: 05/15/18 21:49 Last Admin: 03/24/18 01:36 Dose: 1 tab Atenolol (Tenormin) 25 mg PO DAILY [facility] Stop: 05/16/18 08:59 Last Admin: 03/26/18 08:31 Dose: Not Given Atorvastatin Calcium (Lipitor) 20 mg PO HS [facility]; Protocol Stop: 05/16/18 20:59 Last Admin: 03/25/18 21:13 Dose: Not Given Calcium Carbonate (Tums) 500 mg PO TIDWM [facility] Stop: 05/16/18 07:59 Last Admin: 03/26/18 11:57 Dose: 500 mg Docusate Sodium (Colace) 250 mg PO DAILY [facility] Stop: 05/16/18 08:59 Last Admin: 03/26/18 08:32 Dose: Not Given Donepezil HCl (Aricept) 10 mg PO HS [facility] Stop: 05/16/18 20:59 Last Admin: 03/25/18 21:13 Dose: Not Given Lamotrigine (Lamictal) 200 mg PO TID [facility]; Protocol Stop: 05/16/18 08:59 Last Admin: 03/26/18 08:32 Dose: Not Given Levetiracetam (Keppra) 250 mg PO BID [facility] Stop: 05/16/18 08:59 Last Admin: 03/26/18 08:33 Dose: Not Given Levothyroxine Sodium (Synthroid) 0.05 mg PO QDAC [facility] Stop: 05/16/18 07:29 Last Admin: 03/26/18 06:46 Dose: 0.05 mg Lorazepam (Ativan) 0.5 mg PO Q4H PRN; Protocol PRN Reason: Anxiety Stop: 05/15/18 20:56 Last Admin: 03/24/18 03:40 Dose: 0.5 mg Memantine (Namenda) 5 mg PO BID [facility] Stop: 05/16/18 08:59 Last Admin: 03/26/18 08:33 Dose: Not Given Ondansetron HCl (Zofran Odt) 4 mg PO Q8H PRN PRN Reason: Nausea Stop: 05/15/18 21:27 Pyridoxine HCl (Vitamin B6) 50 mg PO DAILY [facility] Stop: 05/16/18 08:59 Last Admin: 03/26/18 08:33 Dose: Not Given Tamsulosin HCl (Flomax) 0.4 mg PO HS [facility] Stop: 05/16/18 20:59 Last Admin: 03/25/18 21:14 Dose: Not Given General: demented HEENT: NC/AT Neck: Supple Lungs: CTAB Cardiovascular: RRR, Normal S1, Normal S2 Abdomen: soft, non-tender Extremities: clear Neurological: no change Internal Medicine Assmt/Plan - Assessment Assessment: dementia 5150 hold danger to others seizure disorder hypothyroidism htn hyperlipidemia - Plan Plan: as per psych will monitor pt. continue psych meds Nutritional Asmnt/Malnutr-PDOC - Dietary Evaluation Malnutrition Findings (Please click <Entered> for more info): Nutritional Asmnt/Malnutrition Start: 03/17/18 14: 04 Text: Status: Active Freq: Protocol: Document 03/17/18 14:04 [email or web address] (Rec: 03/17/18 14:13 [email or web address] [facility]A) Nutritional Asmnt/Malnutrition Patient General Information Nutritional Screening Consult Diagnosis psychosis nos Pertinent Medical Hx/Surgical Hx HTN, thyroid disorder, dementia, constipation, hypothyroidism, schizophrenia Subjective Information Consult recieved for SBS diet. Pt was seen walking to the dining room for lunch. Pt is confused, stated she likes coffee. Pt's lunch tray was seen with small portion as ordered. Not able to provide theraputic diet education per pt mental status. Current Diet Order/ Nutrition Support low sodium 2gm, SBS diet with small portion Pertinent Medications tums, colace, synthroid, zofran, vit B6, ambien Pertinent Labs 03/16 Glucose 110, Na 135, Triglycerides 189, cholesterol 204 Nutritional Hx/Data Height 1.6 m Height (Calculated Centimeters) 160.0 Current Weight (lbs) 58.967 kg Weight (Calculated Kilograms) 59.0 Weight (Calculated Grams) 57277.0 [place] Body Weight 115 Body Mass Index (BMI) 23.0 Weight Status Approriate GI Symptoms GI Symptoms None Last BM not indicated Difficult in: None Food Allergies No Skin Integrity/Comment: layne bray 14 Estimated Nutritional Goals BEE in Kcals: Using Current wt Calories/Kcals/Kg 25-30 Kcals Calculated 3374-1804 Protein: Using Current wt Protein g/k.8-1 Protein Calculated 47-59 Fluid: ml 0465-6831 (1ml/kcal) Nutritional Problem No current Nutrition Prob Problem N/A Malnutrition Alert Is there a minimum of two criteria No selected? Query Text:Check all the applicable criteria. A minimum of two criteria are recommended for diagnosis of either severe or non-severe malnutrition. Malnutrition Related to Morbid Obesity Malnutrition related to morbid obesity No Intervention/Recommendation Comments 1. Continue with low sodium 2gm, SBS small portion diet as ordered. Limit food high in oxalate. 2. Monitor PO intake, wt, labs and skin integrity 3. F/U as moderate risk in 3-5 days, PO check 03/20 Expected Outcomes/Goals Expected Outcomes/Goals 1. PO intake to meet at least 75% of nutritional needs. 2. Wt stability, skin to remain intact, labs to approach WNL. Reviewed by Kaykay Thomson RD
--- NOTE | 2018-03-26 17:43 | Progress Notes ---
DATE: 03/26/2018 SUBJECTIVE: The patient in the hospital with increased irritability, agitation, had been living in a long-term, diagnosed with dementia. The patient laughing inappropriately, laughing for no reason, laughing as I am asking her questions. States she lives at home alone. Seems very suspicious telling me to go away yesterday. Staff noting she is AO to name and place only, easily agitated, unable to really participate in any self-care planning discussions. Seems to be at times responding to internal stimuli. ASSESSMENT: The patient is confused, disoriented, odd behaviors. We will continue Namenda. Currently, she is on Aricept as well. We will continue to monitor. Consider antipsychotic medications if psychotic symptoms persist. JOB# [id number]
--- NOTE | 2018-03-26 20:31 | Progress Notes ---
DATE: 03/24/2018 SUBJECTIVE: Chart reviewed and the patient interviewed. Also discussed the patient's condition with the staff and reviewed the records and labs. The patient is still having labile affect. The patient still has episodes of severe depression and other episodes of irritability. Slightly easier to redirect her. The patient also is sleeping better. No side effects of medications. ASSESSMENT: The patient is still depressed and acting slightly bizarre and irritable. TREATMENT PLAN: Continue to monitor behavior and condition closely. Also, continue adjusting psychotropic medications and follow up closely. JOB# [id number]
[2018-03-26] MEDS: Atorvastatin Calcium 10 MG TAB PO SCH (20:38)
--- NOTE | 2018-03-27 01:57 | Progress Notes ---
DATE: 03/23/2018 SUBJECTIVE: Chart reviewed and the patient interviewed. Also discussed the patient's condition with the staff and reviewed records and labs. The patient is still depressed and the patient is noted to be crying for no reason and even by herself. The patient also is still depressed, but her affect is labile. The patient slept better last night. She also has been compliant with taking her medications with no side effects of medications. ASSESSMENT: The patient is still depressed and still needs close monitoring. TREATMENT PLAN: Continue to monitor her behavior and her condition closely. Also, we will continue Ativan on a p.r.n. basis to help her with her anxiety and sleep and continue other medications and follow up closely. [facility]# [id number]
[2018-03-27] MEDS: Levothyroxine 0.05 Mg Tab PO SCH (06:45)
[2018-03-27] MEDS: Multivitamin w/ Minerals Tab PO SCH (09:37)
--- NOTE | 2018-03-27 11:07 | General Progress Note ---
Subjective - Review of Systems Service Date: 03/27/18 Subjective: pt continues to be irratable pt is still depressed non compliant cont. psych orders/plans Objective - Results Result Diagrams: 03/16/18 20:00 03/16/18 20:00 Recent Labs: Laboratory Last Values WBC 6.7 Th/cmm (4.8-10.8) 03/16/18 20:00 RBC 4.11 Mil/cmm (3.80-5.10) 03/16/18 20:00 Hgb 12.6 gm/dL (12-16) 03/16/18 20:00 Hct 37.7 % (41.0-60) L 03/16/18 20:00 MCV 91.6 fl (81-100) 03/16/18 20:00 MCH 30.7 pg (27.0-31.0) 03/16/18 20:00 MCHC Differential 33.5 pg (28.0-36.0) 03/16/18 20:00 RDW 12.7 % (11.5-20.0) 03/16/18 20:00 Plt Count 261 Th/cmm (150-400) 03/16/18 20:00 MPV 7.4 fl 03/16/18 20:00 Neutrophils % 58.9 % (40.0-80.0) 03/16/18 20:00 Lymphocytes % 31.5 % (20.0-50.0) 03/16/18 20:00 Monocytes % 6.6 % (2.0-10.0) 03/16/18 20:00 Eosinophils % 2.4 % (0.0-5.0) 03/16/18 20:00 Basophils % 0.6 % (0.0-2.0) 03/16/18 20:00 Sodium 135 mEq/L (136-145) L 03/16/18 20:00 Potassium 3.7 mEq/L (3.5-5.1) 03/16/18 20:00 Chloride 99 mEq/L (98-107) 03/16/18 20:00 Carbon Dioxide 27.2 mEq/L (21.0-31.0) 03/16/18 20:00 Anion Gap 12.5 (7.0-16.0) 03/16/18 20:00 BUN 20 mg/dL (7-25) 03/16/18 20:00 Creatinine 1.2 mg/dL (0.6-1.2) 03/16/18 20:00 Est GFR ( Amer) 58.4 ml/min (>90) 03/16/18 20:00 Est GFR (Non-Af Amer) 48.2 ml/min 03/16/18 20:00 BUN/Creatinine Ratio 16.7 03/16/18 20:00 Glucose 110 mg/dL (70-105) H 03/16/18 20:00 Calcium 10.1 mg/dL (8.6-10.3) 03/16/18 20:00 Total Bilirubin 0.4 mg/dL (0.3-1.0) 03/16/18 20:00 AST 21 U/L (13-39) 03/16/18 20:00 ALT 16 U/L (7-52) 03/16/18 20:00 Alkaline Phosphatase 152 U/L (34-104) H 03/16/18 20:00 Total Protein 7.6 gm/dL (6.0-8.3) 03/16/18 20:00 Albumin 4.4 gm/dL (3.7-5.3) 03/16/18 20:00 Globulin 3.2 gm/dL 03/16/18 20:00 Albumin/Globulin Ratio 1.4 (1.0-1.8) 03/16/18 20:00 Triglycerides 189 mg/dL (<150) H 03/16/18 20:00 Cholesterol 204 mg/dL (<200) H 03/16/18 20:00 LDL Cholesterol Direct 86 mg/dL (75-193) 03/16/18 20:00 HDL Cholesterol 78 mg/dL (23-92) 03/16/18 20:00 TSH 5.11 uIU/ml (0.34-5.60) 03/16/18 20:00 RPR NONREACTIVE (NONREACTIVE) 03/16/18 20:00 - Physical Exam Vitals and I&O: Vital Signs Temp 98.5 F 03/27/18 06:18 Pulse 92 03/27/18 09:37 Resp 20 03/27/18 06:18 BP 148/79 03/27/18 09:37 Pulse Ox 97 03/27/18 06:18 Intake & Output 03/26/18 03/27/18 03/27/18 18:59 06:59 18:59 Intake Total 240 Balance 240 Intake: Oral 240 Other: # Voids 2 # Bowel Movements 1 Active Medications: Current Medications Acetaminophen (Tylenol) 650 mg PO Q4H PRN PRN Reason: Mild Pain / Temp above 100 Stop: 05/15/18 20:56 Acetaminophen/Hydrocodone Bitart ([place] 5mg/325mg) 1 tab PO Q6H PRN PRN Reason: Pain (Moderate) Stop: 05/15/18 21:49 Last Admin: 03/24/18 01:36 Dose: 1 tab Atenolol (Tenormin) 25 mg PO DAILY [facility] Stop: 05/16/18 08:59 Last Admin: 03/27/18 09:37 Dose: 25 mg Atorvastatin Calcium (Lipitor) 20 mg PO HS [facility]; Protocol Stop: 05/16/18 20:59 Last Admin: 03/26/18 20:38 Dose: Not Given Calcium Carbonate (Tums) 500 mg PO TIDWM [facility] Stop: 05/16/18 07:59 Last Admin: 03/27/18 09:37 Dose: 500 mg Docusate Sodium (Colace) 250 mg PO DAILY [facility] Stop: 05/16/18 08:59 Last Admin: 03/27/18 09:37 Dose: 250 mg Donepezil HCl (Aricept) 10 mg PO HS [facility] Stop: 05/16/18 20:59 Last Admin: 03/26/18 20:38 Dose: Not Given Lamotrigine (Lamictal) 200 mg PO TID [facility]; Protocol Stop: 05/16/18 08:59 Last Admin: 03/27/18 09:37 Dose: 200 mg Levetiracetam (Keppra) 250 mg PO BID [facility] Stop: 05/26/18 16:59 Levothyroxine Sodium (Synthroid) 0.05 mg PO QDAC [facility] Stop: 05/16/18 07:29 Last Admin: 03/27/18 06:45 Dose: 0.05 mg Lorazepam (Ativan) 0.5 mg PO Q4H PRN; Protocol PRN Reason: Anxiety Stop: 05/15/18 20:56 Last Admin: 03/27/18 02:39 Dose: 0.5 mg Memantine (Namenda) 5 mg PO BID [facility] Stop: 05/16/18 08:59 Last Admin: 03/27/18 09:37 Dose: 5 mg Ondansetron HCl (Zofran Odt) 4 mg PO Q8H PRN PRN Reason: Nausea Stop: 05/15/18 21:27 Pyridoxine HCl (Vitamin B6) 50 mg PO DAILY [facility] Stop: 05/16/18 08:59 Last Admin: 03/27/18 09:37 Dose: 50 mg Tamsulosin HCl (Flomax) 0.4 mg PO HS [facility] Stop: 05/16/18 20:59 Last Admin: 03/26/18 20:38 Dose: Not Given Assessment/Plan - Assessment Assessment: dementia 5150 hold danger to others seizure disorder hypothyroidism htn hyperlipidemia - Plan Plan: as per psych will monitor pt. continue psych meds Nutritional Asmnt/Malnutr-PDOC - Dietary Evaluation Malnutrition Findings (Please click <Entered> for more info): Nutritional Asmnt/Malnutrition Start: 03/17/18 14: 04 Text: Status: Active Freq: Protocol: Document 03/17/18 14:04 [email or web address] (Rec: 03/17/18 14:13 [email or web address] [facility]) Nutritional Asmnt/Malnutrition Patient General Information Nutritional Screening Consult Diagnosis psychosis nos Pertinent Medical Hx/Surgical Hx HTN, thyroid disorder, dementia, constipation, hypothyroidism, schizophrenia Subjective Information Consult recieved for SBS diet. Pt was seen walking to the dining room for lunch. Pt is confused, stated she likes coffee. Pt's lunch tray was seen with small portion as ordered. Not able to provide theraputic diet education per pt mental status. Current Diet Order/ Nutrition Support low sodium 2gm, SBS diet with small portion Pertinent Medications tums, colace, synthroid, zofran, vit B6, ambien Pertinent Labs 03/16 Glucose 110, Na 135, Triglycerides 189, cholesterol 204 Nutritional Hx/Data Height 1.6 m Height (Calculated Centimeters) 160.0 Current Weight (lbs) 58.967 kg Weight (Calculated Kilograms) 59.0 Weight (Calculated Grams) 43520.0 Daniel Body Weight 115 Body Mass Index (BMI) 23.0 Weight Status Approriate GI Symptoms GI Symptoms None Last BM not indicated Difficult in: None Food Allergies No Skin Integrity/Comment: layne bray 14 Estimated Nutritional Goals BEE in Kcals: Using Current wt Calories/Kcals/Kg 25-30 Kcals Calculated 8757-6306 Protein: Using Current wt Protein g/k.8-1 Protein Calculated 47-59 Fluid: ml 0384-1904 (1ml/kcal) Nutritional Problem No current Nutrition Prob Problem N/A Malnutrition Alert Is there a minimum of two criteria No selected? Query Text:Check all the applicable criteria. A minimum of two criteria are recommended for diagnosis of either severe or non-severe malnutrition. Malnutrition Related to Morbid Obesity Malnutrition related to morbid obesity No Intervention/Recommendation Comments 1. Continue with low sodium 2gm, SBS small portion diet as ordered. Limit food high in oxalate. 2. Monitor PO intake, wt, labs and skin integrity 3. F/U as moderate risk in 3-5 days, PO check 03/20 Expected Outcomes/Goals Expected Outcomes/Goals 1. PO intake to meet at least 75% of nutritional needs. 2. Wt stability, skin to remain intact, labs to approach WNL. Reviewed by Kaykay Thomson RD
[2018-03-27] MEDS: Levetiracetam 500 mg/5mL 5mL UDSyr *for ORAL USE ONLY PO SCH (17:43)
[2018-03-27] MEDS: Atorvastatin Calcium 10 MG TAB PO SCH (21:18)
--- NOTE | 2018-03-28 00:58 | Progress Notes ---
DATE: 03/27/2018 SUBJECTIVE: Case was discussed with staff of the patient, reviewed records. Covering for Dr. Cristina. This is a 63-year-old female who was admitted on 03/16/2018 because of his irritability, agitation. The patient came from retirement in the [facility]. She has been diagnosed dementia before, but lately has been aggressive, irritable, difficulty following staff direction, labile, was on Lamictal because of anger outbursts, yelling and screaming, unable to follow directions with unstable gait and fall risk. The patient continues to be inappropriate laughing to herself, unable to make safe plan for self-care, confused. No side effects with the medication, no sedation, no nausea. She is on Lamictal 200 mg 3 times a day and she is on Aricept 10 mg at bedtime and Namenda 5 mg twice a day and will continue outpatient group therapy, milieu therapy, and adjust medications as needed. [facility]# [id number]
[2018-03-28] MEDS: Levothyroxine 0.05 Mg Tab PO SCH (06:43)
[2018-03-28] MEDS: Multivitamin w/ Minerals Tab PO SCH (09:27)
[2018-03-28] MEDS: Levetiracetam 500 mg/5mL 5mL UDSyr *for ORAL USE ONLY PO SCH ×2 (09:31→17:26)
--- NOTE | 2018-03-28 13:47 | Internal Medicine Prog Note ---
Internal Medicine Subjective - Subjective Service Date: 03/28/18 Patient is:: awake, confused, other (remains easily agitated) Per staff patient has:: no adverse event Internal Medicine Objective - Results Result Diagrams: 03/16/18 20:00 03/16/18 20:00 Recent Labs: Laboratory Last Values WBC 6.7 Th/cmm (4.8-10.8) 03/16/18 20:00 RBC 4.11 Mil/cmm (3.80-5.10) 03/16/18 20:00 Hgb 12.6 gm/dL (12-16) 03/16/18 20:00 Hct 37.7 % (41.0-60) L 03/16/18 20:00 MCV 91.6 fl (81-100) 03/16/18 20:00 MCH 30.7 pg (27.0-31.0) 03/16/18 20:00 MCHC Differential 33.5 pg (28.0-36.0) 03/16/18 20:00 RDW 12.7 % (11.5-20.0) 03/16/18 20:00 Plt Count 261 Th/cmm (150-400) 03/16/18 20:00 MPV 7.4 fl 03/16/18 20:00 Neutrophils % 58.9 % (40.0-80.0) 03/16/18 20:00 Lymphocytes % 31.5 % (20.0-50.0) 03/16/18 20:00 Monocytes % 6.6 % (2.0-10.0) 03/16/18 20:00 Eosinophils % 2.4 % (0.0-5.0) 03/16/18 20:00 Basophils % 0.6 % (0.0-2.0) 03/16/18 20:00 Sodium 135 mEq/L (136-145) L 03/16/18 20:00 Potassium 3.7 mEq/L (3.5-5.1) 03/16/18 20:00 Chloride 99 mEq/L (98-107) 03/16/18 20:00 Carbon Dioxide 27.2 mEq/L (21.0-31.0) 03/16/18 20:00 Anion Gap 12.5 (7.0-16.0) 03/16/18 20:00 BUN 20 mg/dL (7-25) 03/16/18 20:00 Creatinine 1.2 mg/dL (0.6-1.2) 03/16/18 20:00 Est GFR ( Amer) 58.4 ml/min (>90) 03/16/18 20:00 Est GFR (Non-Af Amer) 48.2 ml/min 03/16/18 20:00 BUN/Creatinine Ratio 16.7 03/16/18 20:00 Glucose 110 mg/dL (70-105) H 03/16/18 20:00 Calcium 10.1 mg/dL (8.6-10.3) 03/16/18 20:00 Total Bilirubin 0.4 mg/dL (0.3-1.0) 03/16/18 20:00 AST 21 U/L (13-39) 03/16/18 20:00 ALT 16 U/L (7-52) 03/16/18 20:00 Alkaline Phosphatase 152 U/L (34-104) H 03/16/18 20:00 Total Protein 7.6 gm/dL (6.0-8.3) 03/16/18 20:00 Albumin 4.4 gm/dL (3.7-5.3) 03/16/18 20:00 Globulin 3.2 gm/dL 03/16/18 20:00 Albumin/Globulin Ratio 1.4 (1.0-1.8) 03/16/18 20:00 Triglycerides 189 mg/dL (<150) H 03/16/18 20:00 Cholesterol 204 mg/dL (<200) H 03/16/18 20:00 LDL Cholesterol Direct 86 mg/dL (75-193) 03/16/18 20:00 HDL Cholesterol 78 mg/dL (23-92) 03/16/18 20:00 TSH 5.11 uIU/ml (0.34-5.60) 03/16/18 20:00 RPR NONREACTIVE (NONREACTIVE) 03/16/18 20:00 - Physical Exam Vitals and I&O: Vital Signs Temp 98.0 F 03/28/18 06:26 Pulse 72 03/28/18 09:27 Resp 18 03/28/18 06:26 BP 105/69 03/28/18 09:27 Pulse Ox 93 03/28/18 06:26 Intake & Output 03/27/18 03/28/18 03/28/18 18:59 06:59 18:59 Intake Total 1500 Balance 1500 Intake: Oral 1500 Other: # Voids 4 # Bowel Movements 2 Active Medications: Current Medications Acetaminophen (Tylenol) 650 mg PO Q4H PRN PRN Reason: Mild Pain / Temp above 100 Stop: 05/15/18 20:56 Acetaminophen/Hydrocodone Bitart ([place] 5mg/325mg) 1 tab PO Q6H PRN PRN Reason: Pain (Moderate) Stop: 05/15/18 21:49 Last Admin: 03/24/18 01:36 Dose: 1 tab Atenolol (Tenormin) 25 mg PO DAILY [facility] Stop: 05/16/18 08:59 Last Admin: 03/28/18 09:27 Dose: Not Given Atorvastatin Calcium (Lipitor) 20 mg PO HS [facility]; Protocol Stop: 05/16/18 20:59 Last Admin: 03/27/18 21:18 Dose: Not Given Calcium Carbonate (Tums) 500 mg PO TIDWM [facility] Stop: 05/16/18 07:59 Last Admin: 03/28/18 09:00 Dose: 500 mg Docusate Sodium (Colace) 250 mg PO DAILY [facility] Stop: 05/16/18 08:59 Last Admin: 03/28/18 09:27 Dose: 250 mg Donepezil HCl (Aricept) 10 mg PO HS [facility] Stop: 05/16/18 20:59 Last Admin: 03/27/18 21:18 Dose: Not Given Lamotrigine (Lamictal) 200 mg PO TID [facility]; Protocol Stop: 05/16/18 08:59 Last Admin: 03/28/18 09:27 Dose: 200 mg Levetiracetam (Keppra) 250 mg PO BID [facility] Stop: 05/26/18 16:59 Last Admin: 03/28/18 09:31 Dose: 250 mg Levothyroxine Sodium (Synthroid) 0.05 mg PO QDAC [facility] Stop: 05/16/18 07:29 Last Admin: 03/28/18 06:43 Dose: 0.05 mg Lorazepam (Ativan) 0.5 mg PO Q4H PRN; Protocol PRN Reason: Anxiety Stop: 05/15/18 20:56 Last Admin: 03/27/18 21:18 Dose: 0.5 mg Memantine (Namenda) 5 mg PO BID [facility] Stop: 05/16/18 08:59 Last Admin: 03/28/18 09:27 Dose: 5 mg Ondansetron HCl (Zofran Odt) 4 mg PO Q8H PRN PRN Reason: Nausea Stop: 05/15/18 21:27 Pyridoxine HCl (Vitamin B6) 50 mg PO DAILY [facility] Stop: 05/16/18 08:59 Last Admin: 03/28/18 09:27 Dose: 50 mg Tamsulosin HCl (Flomax) 0.4 mg PO HS [facility] Stop: 05/16/18 20:59 Last Admin: 03/27/18 21:19 Dose: Not Given General: demented HEENT: NC/AT Neck: Supple Lungs: CTAB Cardiovascular: RRR, Normal S1, Normal S2 Abdomen: soft, non-tender Extremities: clear Neurological: no change Internal Medicine Assmt/Plan - Assessment Assessment: dementia 5150 hold danger to others seizure disorder hypothyroidism htn hyperlipidemia - Plan Plan: fall precautions cpm Nutritional Asmnt/Malnutr-PDOC - Dietary Evaluation Malnutrition Findings (Please click <Entered> for more info): Nutritional Asmnt/Malnutrition Start: 03/17/18 14: 04 Text: Status: Active Freq: Protocol: Document 03/17/18 14:04 [email or web address] (Rec: 03/17/18 14:13 [email or web address] [facility]) Nutritional Asmnt/Malnutrition Patient General Information Nutritional Screening Consult Diagnosis psychosis nos Pertinent Medical Hx/Surgical Hx HTN, thyroid disorder, dementia, constipation, hypothyroidism, schizophrenia Subjective Information Consult recieved for SBS diet. Pt was seen walking to the dining room for lunch. Pt is confused, stated she likes coffee. Pt's lunch tray was seen with small portion as ordered. Not able to provide theraputic diet education per pt mental status. Current Diet Order/ Nutrition Support low sodium 2gm, SBS diet with small portion Pertinent Medications tums, colace, synthroid, zofran, vit B6, ambien Pertinent Labs 03/16 Glucose 110, Na 135, Triglycerides 189, cholesterol 204 Nutritional Hx/Data Height 5 ft 3 in Height (Calculated Centimeters) 160.0 Current Weight (lbs) 130 lb Weight (Calculated Kilograms) 59.0 Weight (Calculated Grams) 82390.0 [place] Body Weight 115 Body Mass Index (BMI) 23.0 Weight Status Approriate GI Symptoms GI Symptoms None Last BM not indicated Difficult in: None Food Allergies No Skin Integrity/Comment: intact, layne 14 Estimated Nutritional Goals BEE in Kcals: Using Current wt Calories/Kcals/Kg 25-30 Kcals Calculated 3935-3117 Protein: Using Current wt Protein g/k.8-1 Protein Calculated 47-59 Fluid: ml 3829-1224 (1ml/kcal) Nutritional Problem No current Nutrition Prob Problem N/A Malnutrition Alert Is there a minimum of two criteria No selected? Query Text:Check all the applicable criteria. A minimum of two criteria are recommended for diagnosis of either severe or non-severe malnutrition. Malnutrition Related to Morbid Obesity Malnutrition related to morbid obesity No Intervention/Recommendation Comments 1. Continue with low sodium 2gm, SBS small portion diet as ordered. Limit food high in oxalate. 2. Monitor PO intake, wt, labs and skin integrity 3. F/U as moderate risk in 3-5 days, PO check 03/20 Expected Outcomes/Goals Expected Outcomes/Goals 1. PO intake to meet at least 75% of nutritional needs. 2. Wt stability, skin to remain intact, labs to approach WNL. Reviewed by Kaykay Thomson RD
--- NOTE | 2018-03-28 20:17 | Progress Notes ---
DATE: 03/28/2018 SUMMARY: Case is discussed with staff of the patient and reviewed records. The patient continues to be easily agitated and irritable. She continues to have poor insight. She continues to have episodes of anger outburst. She continues to be unable to make safe plan for her self-care. She is also demented and confused. No side effects to the medication, no sedation, no nausea. We will continue to work with the patient in group therapy, milieu therapy, and adjust medication as needed. JOB# [id number]
[2018-03-28] MEDS: Atorvastatin Calcium 10 MG TAB PO SCH (20:47)
[2018-03-29] MEDS: Levothyroxine 0.05 Mg Tab PO SCH (06:58)
[2018-03-29] MEDS: Levetiracetam 500 mg/5mL 5mL UDSyr *for ORAL USE ONLY PO SCH (09:09)
[2018-03-29] MEDS: Multivitamin w/ Minerals Tab PO SCH (09:11)
--- NOTE | 2018-03-31 22:58 | Discharge Summary ---
DATE OF DISCHARGE: 03/29/2018 PATIENT'S AGE: 63. SEX: Female. PHYSICIAN: Verna Cristina MD, MPH FINAL DIAGNOSES: PRIMARY DIAGNOSES: Schizoaffective disorder, mixed type, severe, with psychotic features. SECONDARY DIAGNOSES: Dementia, [id number], with behavioral disturbances and psychosis. REASON FOR HOSPITALIZATION: The patient was admitted to the hospital because of increased irritability and agitation and [facility] was not able to handle her aggressive behavior and her agitation. HOSPITAL COURSE: The patient continued to be agitated and in irritable mood. The patient also was aggressive and needed a lot of redirections. The patient was given Namenda in a dose of 5 mg twice a day and also Lamictal in a dose of 200 mg 3 times a day and Aricept 10 mg every day. The patient was still irritable and agitated, but gradually her affect was brighter. The patient was not as agitated. She interacted more with peers and with others. The patient was returned back to [facility]. Physical exam of the patient was basically within normal. The patient had no major medical problems while in the hospital. AFTER DISCHARGE PLANS: The patient discharged from the hospital, returned to [facility] with plans to continue her treatment as an outpatient. EXPECTED OUTCOME AFTER DISCHARGE: Fair if the patient continue with her treatment and with discharge plans. [facility]# [id number]
== END 2018-03-29 13:00 | DRG 885 ==
LOC: ER 17:29 → GERO 19:52
PROVIDERS: ADMIT Psychiatry & Neurology Psychiatry; ATTEND Psychiatry & Neurology Psychiatry
DX: F25.0 Schizoaffective disorder, bipolar type (principal); F03.91 Unspecified dementia, unspecified severity, with behavioral disturbance; G40.909 Epilepsy, unspecified, not intractable, without status epilepticus; I10 Essential (primary) hypertension; E78.5 Hyperlipidemia, unspecified; E03.9 Hypothyroidism, unspecified; M19.90 Unspecified osteoarthritis, unspecified site
CPT/HCPCS: 36415-UA; 80053-TC; 80061-TC; 83036-90; 84443-TC; 85025-TC; 86592-TC; 90899; 93005; G0410; J1200; J1630; J2060; Z7610